=== PATIENT | female | born 1930 | race Caucasian/White ===

== ENCOUNTER → 2017-02-04 | Outpatient (CLI) | payer MEDICARE, BC ==
[2017-02-04 11:32] LABS: Blood Urea Nitrogen 12 mg/dL (7-17); Non-African American GFR(MDRD) >60 (>60 ml/min/1.73 sqM)
== END | disposition home or self-care (01) ==
LOC: LABWHC1 10:29
PROVIDERS: ATTEND Physical Medicine & Rehabilitation
DX: Z01.812 Encounter for preprocedural laboratory examination (principal); N28.9 Disorder of kidney and ureter, unspecified
CPT/HCPCS: 36415; 82565; 84520

== ENCOUNTER 2017-07-24 09:36 | Observation (INO) | payer MEDICARE, BC ==
--- NOTE | 2017-07-24 09:45 | ED ---
General Adult HPI - General Chief complaint: Chest Pain Stated complaint: Chest Pain/Dizzy Time Seen by Provider: 07/24/17 09:41 Source: patient, RN notes reviewed, old records reviewed Mode of arrival: EMS Limitations: no limitations - History of Present Illness Initial comments: This is an 86-year-old female to the ER for evaluation of chest pain today. Patient has history of heart disease history of [place]. Multiple history of heart catheterizations. Patient had chest pain today she has not had any chest pain 8 months patient doesn't nitro one time with no improvement, second nitro did help chest pain and patient is currently chest pain-free. Denies any other significant complaints. No recent fever cough congestion or shortness of breath. - Related Data Home Medications Medication Instructions Recorded Confirmed Areds 2 1 tab PO DAILY 05/29/15 07/24/17 Docusate [Colace] 100 mg PO HS 05/29/15 07/24/17 Ergocalciferol [Vitamin D2 50,000 unit PO SABA 05/29/15 07/24/17 (DRISDOL)] HYDROcodone/APAP 5-325MG [[place] 1 tab PO Q4HR PRN 05/29/15 07/24/17 5-325] Isosorbide Mononitrate ER [Imdur] 30 mg PO BID 05/29/15 07/24/17 Multivitamins, Thera [Multivitamin 1 tab PO DAILY 05/29/15 07/24/17 (formulary)] Naloxegol Oxalate [Movantik] 25 mg PO Q48H PRN 05/29/15 07/24/17 Nitroglycerin Sl Tabs [Nitrostat] 0.4 mg SUBLINGUAL Q5M PRN 05/29/15 07/24/17 Aspirin EC [Ecotrin Low Dose] 81 mg PO DAILY 07/24/17 07/24/17 Budesonide [Pulmicort] 0.5 mg INHALATION RT-BID 07/24/17 07/24/17 Halobetasol Propionate 1 applic TOPICAL BID 07/24/17 07/24/17 Inulin/Chromium Picolinate [Fiber 1 tab PO DAILY 07/24/17 07/24/17 Gummies Chew] Lidocaine 5% Patch [Lidoderm] 1 patch TOPICAL DAILY PRN 07/24/17 07/24/17 Pantoprazole [Protonix] 40 mg PO BID 07/24/17 07/24/17 diphenhydrAMINE [Benadryl] 50 mg PO HS 07/24/17 07/24/17 Allergies Allergy/AdvReac Type Severity Reaction Status Date / Time azithromycin [From Zithromax] Allergy Unknown Verified 07/24/17 10:01 bacitracin Allergy Unknown Verified 07/24/17 10:01 [From Neosporin ([id number])] bacitracin zinc Allergy Unknown Verified 07/24/17 10:01 [From Neosporin ([id number])] ciprofloxacin [From Cipro] Allergy Unknown Verified 07/24/17 10:01 ciprofloxacin HCl Allergy Unknown Verified 07/24/17 10:01 [From Cipro] codeine Allergy Unknown Verified 07/24/17 10:01 fenofibrate Allergy Unknown Verified 07/24/17 10:01 fenofibrate nanocrystallized Allergy Unknown Verified 07/24/17 10:01 [From Tricor] fenofibrate,micronized Allergy Unknown Verified 07/24/17 10:01 [From Tricor] hydromorphone HCl Allergy Unknown Verified 07/24/17 10:01 [From Dilaudid] latex Allergy Unknown Verified 07/24/17 10:01 neomycin sulfate Allergy Unknown Verified 07/24/17 10:01 [From Neosporin ([id number])] Penicillins Allergy Unknown Verified 07/24/17 10:01 pentazocine lactate Allergy Unknown Verified 07/24/17 10:01 [From Talwin] polymyxin B Allergy Unknown Verified 07/24/17 10:01 [From Neosporin ([id number])] shellfish derived Allergy Unknown Verified 07/24/17 10:01 simvastatin Allergy Unknown Verified 07/24/17 10:01 sucralfate Allergy Unknown Verified 07/24/17 10:01 Review of Systems ROS Statement: Those systems with pertinent positive or pertinent negative responses have been documented in the HPI. ROS Other: All systems not noted in ROS Statement are negative. Past Medical History Past Medical History: Coronary Artery Disease (CAD), Cancer, Heart Failure, GERD /Reflux, Myocardial Infarction ([place]), Osteoarthritis (OA) Additional Past Medical History / Comment(s): 15 ADMITTED WITH LT LEG DVT. OTHER PAST MEDICL HX INCLUDES: skin cancer, COLON CANCER,HIATAL HERNIA, INCONT OF URINE,CHRONIC BACK PAIN,SCOLIOSIS,DDD,SHINGLES 1995, [place] 2006 PER OLD HX. Last Myocardial Infarction Date:: 2006 History of Any Multi-Drug Resistant Organisms: None Reported Past Surgical History: Bladder Surgery, Bowel Resection, Section, Cholecystectomy, Heart Catheterization, Hernia Repair, Hysterectomy, Joint Replacement, Orthopedic Surgery Additional Past Surgical History / Comment(s): eye SX FOR CRYSTALS BEHIND EYES, CATARACTS, RAVI CARPAL TUNNEL RELEASE,RECTOCELE REPAIR, RADIOFREQUENCY ABLATION L3-4,L4-5,L5-S1. RT SIDE SACROILIAC JOINT INJECTION UNDER FLUOSCOPY,TRIGGER POINT INJ RT SHOULDER.RAVI BUNIONECTOMY,HMMER TOE SX, RAVI KNEE REPLACMENT,NECK SX ,NERVES BURNED IN BACK,SKINCA REMOVED NOSE /FACE, LT HIP REPLACEMNT-NEEDS ABX FOR LIFE FOR ANY DENTAL/UROLOGICAL PROCEDURES. Additional Past Anesthesia/Blood Transfusion Reaction / Comment(s): BLOOD TRANSFUSION-NO REACTION Past Psychological History: No Psychological Hx Reported Smoking Status: Never smoker Past Alcohol Use History: None Reported Past Drug Use History: None Reported - Past Family History Mother Family Medical History: Cancer Additional Family Medical History / Comment(s): PANCREATITC CANCER Father Family Medical History: Myocardial Infarction ([place]) General Exam Limitations: no limitations General appearance: alert, in no apparent distress Head exam: Present: atraumatic, normocephalic, normal inspection Eye exam: Present: normal appearance, PERRL, EOMI. Absent: scleral icterus, conjunctival injection, periorbital swelling ENT exam: Present: normal exam, mucous membranes moist Neck exam: Present: normal inspection. Absent: tenderness, meningismus, lymphadenopathy Respiratory exam: Present: normal lung sounds bilaterally. Absent: respiratory distress, wheezes, rales, rhonchi, stridor Cardiovascular Exam: Present: regular rate, normal rhythm, normal heart sounds. Absent: systolic murmur, diastolic murmur, rubs, gallop, clicks GI/Abdominal exam: Present: soft, normal bowel sounds. Absent: distended, tenderness, guarding, rebound, rigid Extremities exam: Present: normal inspection, full ROM, normal capillary refill. Absent: tenderness, pedal edema, joint swelling, calf tenderness Back exam: Present: normal inspection Neurological exam: Present: alert, oriented X3, CN II-XII intact Psychiatric exam: Present: normal affect, normal mood Skin exam: Present: warm, dry, intact, normal color. Absent: rash Course Vital Signs 07/24/17 07/24/17 07/24/17 09:39 10:42 12:28 Temperature 97.9 F Pulse Rate 61 66 60 Respiratory 18 16 16 Rate Blood Pressure 182/77 155/77 114/73 O2 Sat by Pulse 95 94 L 93 L Oximetry 07/24/17 07/24/17 07/24/17 12:30 13:30 13:33 Temperature Pulse Rate 64 75 91 Respiratory 16 18 16 Rate Blood Pressure 174/73 172/68 172/68 O2 Sat by Pulse 97 68 L 97 Oximetry 07/24/17 07/24/17 16:13 17:30 Temperature Pulse Rate 69 62 Respiratory 18 Rate Blood Pressure 139/63 139/60 O2 Sat by Pulse 99 100 Oximetry - Reevaluation(s) Reevaluation #1: 07/24/17 10:36 Patient remains without chest pain at this time EKG Findings - EKG Comments: EKG Findings:: EKG shows normal sinus 60, AR 112, QRS 134, QTC 454 Medical Decision Making - Medical Decision Making 86 female DEL history of CAD, patient will be admitted for cardiac observation and evaluation. Serial troponins and anticoagulation - Lab Data Result diagrams: 07/25/17 07:54 07/24/17 11:05 - Radiology Data Radiology results: report reviewed (Chest x-rays negative for acute disease), image reviewed Critical Care Time Critical Care Time: Yes Total Critical Care Time: 31 Disposition Clinical Impression: Chest pain Disposition: ADMITTED IP TO THIS [facility] Condition: Undetermined
[2017-07-24] MEDS ORDERED: ASPIRIN 81 MG PO STA (10:33)
[2017-07-24] MEDS ORDERED: HEPARIN SODIUM,PORCINE 5,000 UNIT/ML 1 ML VIAL IV PRN (10:33)
[2017-07-24] MEDS ORDERED: NITROGLYCERIN SL TABS 0.4 MG TAB SUBLINGUAL PRN ×2 (10:33→16:24)
[2017-07-24] MEDS ORDERED: HEPARIN SODIUM,PORCINE 5,000 UNIT/ML 1 ML VIAL IV ONE (10:33)
[2017-07-24] MEDS ORDERED: HEPARIN SOD,PORK IN 0.45% NACL 25,000 UNIT in 0.45% NACL 1 500ML.BAG IV SCH (10:45)
[2017-07-24 11:30] LABS: Basophils % (A) 1 %; Eosinophils # (A) 0.1 k/uL (0-0.7); Eosinophils % (A) 1 %; HCT 40.1 % (34.0-46.0); HGB 13.5 gm/dL (11.4-16.0); Lymphocytes # (A) 1.9 k/uL (1.0-4.8); Lymphocytes % (A) 32 %; MCH 31.2 pg (25.0-35.0); MCHC 33.8 g/dL (31.0-37.0); MCV 92.4 fL (80.0-100.0); Mean Platelet Volume 7.6; Monocytes # (A) 0.5 k/uL (0-1.0); Monocytes % (A) 9 %; Neutrophils # (A) 3.2 k/uL (1.3-7.7); Neutrophils % (A) 54 %; Platelet Count 249 k/uL (150-450); RBC 4.33 m/uL (3.80-5.40); RDW 12.6 % (11.5-15.5)
[2017-07-24 11:42] LABS: ALT 18 U/L (9-52); AST 18 U/L (14-36); Albumin 3.6 g/dL (3.5-5.0); Alkaline Phosphatase 73 U/L (38-126); Anion Gap 8 mmol/L; Blood Urea Nitrogen 17 mg/dL (7-17); Calcium 9.5 mg/dL (8.4-10.2); Carbon Dioxide 30 mmol/L (22-30); Chloride 102 mmol/L (98-107); Glucose 89 mg/dL (74-99); Lipase 43 U/L (23-300); Magnesium 2.1 mg/dL (1.6-2.3); Sodium 140 mmol/L (137-145); Total Bilirubin 0.4 mg/dL (0.2-1.3); Total Protein 6.3 g/dL (6.3-8.2)
--- NOTE | 2017-07-24 11:42 | XR ---
EXAMINATION TYPE: XR chest 2V DATE OF EXAM: 07/24/2017 COMPARISON: 02/20/2013 INDICATION: Chest pain TECHNIQUE: Frontal and lateral views of the chest are obtained. FINDINGS: The heart size is normal. The pulmonary vasculature is normal. The lungs are clear. There is chronic elevation of the right diaphragm. IMPRESSION: 1. No acute pulmonary process.
[2017-07-24 11:49] LABS: Creatine Kinase 40 U/L (30-135)
[2017-07-24 12:02] LABS: Creatine Kinase MB 0.4 ng/mL (0.0-2.4); Troponin I <0.012 ng/mL (0.000-0.034)
[2017-07-24 12:06] LABS: Partial Thromboplastin Time 20.7 sec (22.0-30.0); Prothrombin Time 9.9 sec (9.0-12.0)
[2017-07-24] MEDS ORDERED: NON-FORMULARY DRUG (Naloxegol Oxalate [Movantik] 25 MG) PO PRN (16:24)
[2017-07-24] MEDS ORDERED: LIDOCAINE 5% PATCH TOPICAL PRN (16:24)
--- NOTE | 2017-07-24 16:55 | HP ---
HISTORY AND PHYSICAL CHIEF COMPLAINT: 86-year-old white female with chest pain and dizziness similar to eight months ago chest pain she had eight months ago when she had a heart attack. HISTORY OF PRESENT ILLNESS: 86-year-old white female came into the hospital due to chest pain. She has a history of heart disease, [place], history of heart catheterization. Chest pain is relieved by nitroglycerin, which made her dizzy. Due to dizziness and chest pain, she came to the hospital. No recent cough, fever, chills, shortness of breath. No fever, cough, congestion, shortness of breath. MEDICATIONS: 1 tab daily, Colace 100 mg daily, vitamin D 25787 units once a week, [place] 5/325 every 4 hours, Imdur 30 mg b.i.d., multivitamin daily, Movantik 25 mg q48 hours, nitroglycerin sublingual, Ecotrin 81 mg daily, Pulmicort 0.5 mg b.i.d., gummies, lidocaine 5% patch daily, Protonix 40 mg b.i.d., Benadryl 60 mg q.h.s. ALLERGIES: ERYTHROMYCIN, AZITHROMYCIN, BACITRACIN, CIPROFLOXACIN, CODEINE, FENOFIBRATE, NEOMYCIN, PENICILLIN, POLYMYXIN, SHELLFISH, SIMVASTATIN, SULCRAFATE. REVIEW OF SYSTEMS: 14-point review of systems negative except for mentioned in HPI. PAST MEDICAL HISTORY: Coronary artery disease, cancer, heart failure, GERD, reflux, myocardial infarction, osteoarthritis, skin cancer, colon cancer, hiatal hernia. Chronic back pain. Scoliosis. Shingles, degenerative disc disease. PAST SURGICAL HISTORY: Bladder surgery, bowel resection, , cholecystectomy, heart catheterization, hernia repair, hysterectomy, joint replacement, orthopedic surgery, cataract surgery, carpal tunnel release, rectocele repair, sacral iliac joint injection, bunionectomy, bilateral knee replacement, left hip replacement. FAMILY HISTORY: Mother cancer, pancreatic cancer. Father, myocardial infarction. PHYSICAL EXAM: Vital signs: Temperature 97.9, pulse 60, respirations 16 to 18, blood pressure 182/77. HEENT: Normocephalic, atraumatic. Looks stated age. Ophthalmological: Pupils equal, round, reactive to light and accommodation. Cardiovascular S1, S2. LUNGS: Transmitted upper sounds. GI soft nontender. Hematologic: Negative Homans. Psych: Fair mood and affect. NEUROLOGIC: Alert and oriented x3. ASSESSMENT: 1. Atypical chest pain. Rule out myocardial infarction. 2. History of coronary artery disease. 3. History of hypertension. 4. Gastroesophageal reflux disease. 5. Dyslipidemia. Continue current treatments. Rule out myocardial infarction. Cardiology is seeing the patient. MMODL / IJN: [id number] /
--- NOTE | 2017-07-24 17:00 | CT ---
EXAMINATION TYPE: CT chest wo con DATE OF EXAM: 07/24/2017 COMPARISON: 05/29/2015 HISTORY: shortness of breath and back pain. CT DLP: 258.4 mGycm. Automated Exposure Control for Dose Reduction was Utilized. TECHNIQUE: CT scan of the thorax is performed without IV contrast. FINDINGS: There is minimal linear density in the right middle lobe. There is no pleural effusion. There is no e vidence of a pulmonary mass. There is moderate size hiatal hernia. There is some atherosclerotic vasc ular calcification. There is no pericardial effusion. There is no mediastinal adenopathy. There is hy pertrophic spurring in the thoracic and lumbar spine. IMPRESSION: Hiatal hernia. Atherosclerotic vascular disease. Mild scarring in the right middle lobe. No significant change compared to old exam. Spondylotic changes in the thoracic spine. No compression fracture seen.
[2017-07-24] MEDS: HYDROcodone/APAP 5-325MG 1 EACH TAB PO PRN ×2 (17:09→20:46)
[2017-07-24] MEDS ORDERED: ERGOCALCIFEROL 50,000 UNIT CAP PO SCH (18:00)
[2017-07-24 18:42] LABS: Creatine Kinase MB 0.4 ng/mL (0.0-2.4)
[2017-07-24 18:46] VITALS: BMI 23.3
[2017-07-24] MEDS: BUDESONIDE 0.5 MG/2 ML NEBU INHALATION SCH (19:05)
[2017-07-24] MEDS: PANTOPRAZOLE 40 MG TABLET PO SCH (19:10)
[2017-07-24] MEDS: DOCUSATE 100 MG CAP PO SCH (20:36)
[2017-07-24] MEDS: CLOBETASOL PROP 0.05% CR 15GM TOPICAL SCH (20:36)
[2017-07-24] MEDS: METOPROLOL TARTRATE 25 MG TAB PO SCH (20:36)
[2017-07-24] MEDS: diphenhydrAMINE 50 MG CAP PO SCH (20:36)
[2017-07-24] MEDS: ISOSORBIDE MONONITRATE ER 30 MG TAB.ER.24H PO SCH (20:36)
[2017-07-25 01:37] LABS: Creatine Kinase 24 U/L (30-135)
[2017-07-25 01:48] LABS: Creatine Kinase MB 0.3 ng/mL (0.0-2.4)
[2017-07-25 01:51] LABS: Troponin I <0.012 ng/mL (0.000-0.034)
[2017-07-25] MEDS ORDERED: ASPIRIN 325 MG TAB PO SCH (09:00)
[2017-07-25 09:41] LABS: Cholesterol 178 mg/dL (<200); HDL Cholesterol 56 mg/dL (40-60); LDL Cholesterol,Calculated 104 mg/dL (0-99); Triglycerides 90 mg/dL (<150)
[2017-07-25 10:09] LABS: Mean Platelet Volume 7.6; Platelet Count 208 k/uL (150-450)
[2017-07-25] MEDS: BUDESONIDE 0.5 MG/2 ML NEBU INHALATION SCH ×2 (10:54→20:38)
[2017-07-25] MEDS ORDERED: AMINOPHYLLINE 500 MG/20 ML VIAL IV PRN (11:28)
[2017-07-25] MEDS ORDERED: REGADENOSON 0.4 MG/5 ML SYRINGE IV ONE (11:28)
[2017-07-25] MEDS: MULTIVITAMINS, THERA 1 EACH TAB PO SCH (11:58)
[2017-07-25] MEDS: CALCIUM POLYCARBOPHIL 625 MG TAB PO SCH (11:58)
[2017-07-25] MEDS: VIT A,C & E-LUTEIN-MINERALS 1 EACH TAB PO SCH (11:58)
[2017-07-25] MEDS: ASPIRIN 81 MG PO SCH (11:58)
[2017-07-25] MEDS: PANTOPRAZOLE 40 MG TABLET PO SCH ×2 (11:58→18:38)
[2017-07-25] MEDS: CLOBETASOL PROP 0.05% CR 15GM TOPICAL SCH ×2 (12:00→21:10)
--- NOTE | 2017-07-25 12:14 | PN ---
PROGRESS NOTE SUBJECTIVE: This 86-year-old, white female, admitted with atypical chest pain. CAT scan of the chest is negative. Cardiac enzymes negative x3. Await Cardiology clearance prior to discharge. She is having a lot of stress and anxiety in her life. Possible GERD and acid reflux for which she will be placed on a stomach pill when she goes home. CARDIOVASCULAR: S1, S2. LUNGS: Clear. GI is tender to palpation. EPIGASTRIC: History of a hiatal hernia. PSYCH: Fair mood and affect. NEUROLOGIC: Alert and orient x3. ASSESSMENT: 1. Atypical chest pain. 2. Possible gastroesophageal reflux disease. 3. Hiatal hernia. 4. Myocardial infarction ruled out. 5. Pulmonary process ruled out. Please see further orders. Placed on a stomach pill. Possible discharge home on omeprazole. MMODL / IJN: [id number] /
--- NOTE | 2017-07-25 12:28 | P.CRDCN ---
History of Present Illness Consult date: 07/25/17 Consult reason: chest pain History of present illness: Mrs. Hammer is a pleasant 86-year-old female past medical history significant for coronary artery disease and gastroesophageal reflux disease. She hasn't seen a interventional radiologist in the last 10ish years. Old records reviewed reveal she had a catheterization in [address] Mcfarland that revealed a chronic total occlusion of the RCA, miod diseae of LAD, 50% stenosis of first OM and 99% circumflex stenosis. At that time she underwent balloon angioplasty of the circumflex. She followed up with a cardiolgist at [facility] a couple times and now just sees a primary care physician. She states she suffers from intermittent episodes of chest pain over the last 8+ months. Yesterday she had an episode of sharp mid-sternal chest pain yesterday morning when she woke up. She took a sublingual nitroglycerin with no relief. Waited 20 minutes and took a second one. The pain started to subside but she became acutely dizzy so decided to call EMS. Dizziness lasted approximately 30-45 minutes. She denies any associated shortness of breath, palpitations, nausea, vomiting or diaphoresis. The pain did not radiate anywhere, remained localized to the anterior mid-sternal area. She has had no reoccurrence of pain since admission and telemetry tracings have been unremarkable. EKG on arrival reveals sinus rhythm with right bundle branch block pattern. No acute ST or T-wave abnormalities. Chest xray is negative for an acute cardiopulmonary process. Laboratory data reviewed, cardiac enzymes negative 3, hemoglobin 13.5, platelets 249, potassium 4.0, creatinine 0.6, magnesium 2.1, LDL 104, HDL 56, triglycerides 90, total cholesterol 178. Current cardiac medications include Imdur 30 mg twice a day and aspirin 81 mg daily. Review of the records reveals last echocardiogram was performed 2008 revealed preserved left ventricular systolic function with ejection fraction 60%. Review of Systems At the time of my exam: CONSTITUTIONAL: Denies fever. Denies chills. EYES: Denies blurred vision. Denies vision changes. Denies eye pain. EARS, NOSE, MOUTH & THROAT: Denies headache. Denies sore throat. Denies ear pain. CARDIOVASCULAR: Denies chest pain. Denies shortness of breath. Denies orthopnea. Denies PND. Denies palpitations. RESPIRATORY: Denies cough. GASTROINTESTINAL: Denies abdominal pain. Denies diarrhea. Denies constipation. Denies nausea. Denies vomiting. MUSCULOSKELETAL: Denies myalgias. INTEGUMENTARY: Denies pruitis. Denies rash. NEUROLOGIC: Denies numbness. Denies tingling. Denies weakness. PSYCHIATRIC: Denies anxiety. Denies depression. ENDOCRINE: Denies fatigue. Denies weight change. Denies polydipsia. Denies polyurina. GENITOURINARY: Denies burning, hematuria or urgency with micturation. HEMATOLOGIC: Denies history of anemia. Denies bleeding. Past Medical History Past Medical History: Coronary Artery Disease (CAD), Cancer, Heart Failure, GERD /Reflux, Myocardial Infarction (MT), Osteoarthritis (OA) Additional Past Medical History / Comment(s): 05-29-15 ADMITTED WITH LT LEG DVT. OTHER PAST MEDICL HX INCLUDES: skin cancer, COLON CANCER,HIATAL HERNIA, INCONT OF URINE,CHRONIC BACK PAIN,SCOLIOSIS,DDD,SHINGLES 1995, MT 2006 PER OLD HX. Last Myocardial Infarction Date:: 2006 History of Any Multi-Drug Resistant Organisms: None Reported Past Surgical History: Bladder Surgery, Bowel Resection, Section, Cholecystectomy, Heart Catheterization, Heart Catheterization With Stent, Hernia Repair, Hysterectomy, Joint Replacement, Orthopedic Surgery Additional Past Surgical History / Comment(s): eye SX FOR CRYSTALS BEHIND EYES, CATARACTS, RAVI CARPAL TUNNEL RELEASE,RECTOCELE REPAIR, RADIOFREQUENCY ABLATION L3-4,L4-5,L5-S1. RT SIDE SACROILIAC JOINT INJECTION UNDER FLUOSCOPY,TRIGGER POINT INJ RT SHOULDER.RAVI BUNIONECTOMY,HMMER TOE SX, RAVI KNEE REPLACMENT,NECK SX ,NERVES BURNED IN BACK,SKINCA REMOVED NOSE /FACE, LT HIP REPLACEMNT-NEEDS ABX FOR LIFE FOR ANY DENTAL/UROLOGICAL PROCEDURES. Past Anesthesia/Blood Transfusion Reactions: No Reported Reaction Additional Past Anesthesia/Blood Transfusion Reaction / Comment(s): BLOOD TRANSFUSION-NO REACTION Date of Last Stent Placement:: 2006 Past Psychological History: No Psychological Hx Reported Smoking Status: Never smoker Past Alcohol Use History: Occasional Past Drug Use History: None Reported - Past Family History Mother Family Medical History: Cancer Additional Family Medical History / Comment(s): PANCREATITC CANCER Father Family Medical History: Myocardial Infarction (MT) Medications and Allergies Home Medications Medication Instructions Recorded Confirmed Type Areds 2 1 tab PO DAILY 05/29/15 07/24/17 History Docusate [Colace] 100 mg PO HS 05/29/15 07/24/17 History Ergocalciferol [Vitamin D2 50,000 unit PO SABA 05/29/15 07/24/17 History (DRISDOL)] HYDROcodone/APAP 5-325MG [[place] 1 tab PO Q4HR PRN 05/29/15 07/24/17 History 5-325] Isosorbide Mononitrate ER [Imdur] 30 mg PO BID 05/29/15 07/24/17 History Multivitamins, Thera [Multivitamin 1 tab PO DAILY 05/29/15 07/24/17 History (formulary)] Naloxegol Oxalate [Movantik] 25 mg PO Q48H PRN 05/29/15 07/24/17 History Nitroglycerin Sl Tabs [Nitrostat] 0.4 mg SUBLINGUAL Q5M PRN 05/29/15 07/24/17 History Aspirin EC [Ecotrin Low Dose] 81 mg PO DAILY 07/24/17 07/24/17 History Budesonide [Pulmicort] 0.5 mg INHALATION RT-BID 07/24/17 07/24/17 History Halobetasol Propionate 1 applic TOPICAL BID 07/24/17 07/24/17 History Inulin/Chromium Picolinate [Fiber 1 tab PO DAILY 07/24/17 07/24/17 History Gummies Chew] Lidocaine 5% Patch [Lidoderm] 1 patch TOPICAL DAILY PRN 07/24/17 07/24/17 History Pantoprazole [Protonix] 40 mg PO BID 07/24/17 07/24/17 History diphenhydrAMINE [Benadryl] 50 mg PO HS 07/24/17 07/24/17 History Allergies Allergy/AdvReac Type Severity Reaction Status Date / Time azithromycin [From Zithromax] Allergy Unknown Verified 07/24/17 10:01 bacitracin Allergy Unknown Verified 07/24/17 10:01 [From Neosporin ([id number])] bacitracin zinc Allergy Unknown Verified 07/24/17 10:01 [From Neosporin ([id number])] ciprofloxacin [From Cipro] Allergy Unknown Verified 07/24/17 10:01 ciprofloxacin HCl Allergy Unknown Verified 07/24/17 10:01 [From Cipro] codeine Allergy Unknown Verified 07/24/17 10:01 fenofibrate Allergy Unknown Verified 07/24/17 10:01 fenofibrate nanocrystallized Allergy Unknown Verified 07/24/17 10:01 [From Tricor] fenofibrate,micronized Allergy Unknown Verified 07/24/17 10:01 [From Tricor] hydromorphone HCl Allergy Unknown Verified 07/24/17 10:01 [From Dilaudid] latex Allergy Unknown Verified 07/24/17 10:01 neomycin sulfate Allergy Unknown Verified 07/24/17 10:01 [From Neosporin ([id number])] Penicillins Allergy Unknown Verified 07/24/17 10:01 pentazocine lactate Allergy Unknown Verified 07/24/17 10:01 [From Talwin] polymyxin B Allergy Unknown Verified 07/24/17 10:01 [From Neosporin ([id number])] shellfish derived Allergy Unknown Verified 07/24/17 10:01 simvastatin Allergy Unknown Verified 07/24/17 10:01 sucralfate Allergy Unknown Verified 07/24/17 10:01 Physical Exam Vitals: Vital Signs Temp Pulse Pulse Pulse Resp BP BP 07/25/17 08:00 97.9 F 59 L 18 114/55 07/25/17 04:00 97.6 F 56 L 15 112/54 07/25/17 00:00 97.8 F 62 15 100/48 07/24/17 20:00 97.1 F L 69 16 113/47 07/24/17 19:12 88 07/24/17 19:05 92 07/24/17 18:27 97.5 F L 96 07/24/17 17:30 62 139/60 07/24/17 16:13 69 18 139/63 07/24/17 13:33 91 16 172/68 07/24/17 13:30 75 18 172/68 07/24/17 12:30 64 16 174/73 07/24/17 12:28 60 16 114/73 07/24/17 10:42 66 16 155/77 07/24/17 09:39 97.9 F 61 18 182/77 Pulse Ox 03/05/18 08:00 96 07/25/17 04:00 97 07/25/17 00:00 95 07/24/17 20:00 100 07/24/17 19:12 07/24/17 19:05 07/24/17 18:27 96 07/24/17 17:30 100 07/24/17 16:13 99 07/24/17 13:33 97 07/24/17 13:30 68 L 07/24/17 12:30 97 07/24/17 12:28 93 L 07/24/17 10:42 94 L 07/24/17 09:39 95 Intake and Output 07/24/17 07/25/17 07/25/17 22:59 06:59 14:59 Intake Total 132.842 127.953 Balance 132.842 127.953 Intake: Intake, IV Titration 132.842 127.953 Amount Heparin Sod,Pork in 0.45% 132.842 127.953 NaCl 25,000 unit In 0.45 % NaCl 1 500ml.bag @ 12 UNITS/KG/HR 15.24 mls/hr IV .Q24H [facility] Rx#: [id number] Other: Voiding Method Bedside Commode Bedside Commode # Voids 1 Weight 63.503 kg Blood pressure 112/54 rate 56 afebrile maintaining oxygen saturations on room air. GENERAL: This is a 86-year-old female in no apparent distress at the time of my examination. HEENT: Head is atraumatic, normocephalic. Pupils are equal, round. Sclerae anicteric. Conjunctivae are clear. Mucous membranes of the mouth are moist. Neck is supple. There is no jugular venous distention. No carotid bruit is heard. LUNGS: Clear to auscultation no wheezes, rales or rhonchi. No chest wall tenderness is noted on palpation or with deep breathing. HEART: Regular rate and rhythm with faint systolic ejection murmur at the base, no rubs or gallops. S1 and S2 heard. ABDOMEN: Soft, nontender. Bowel sounds are heard. No organomegaly noted. EXTREMITIES: No evidence of peripheral edema and no calf tenderness noted. VASCULAR: Radial and dorsalis pedis pulses palpated, no evidence of clubbing. NEUROLOGIC: Patient is awake, alert and oriented x3. Results 07/25/17 07:54 07/24/17 11:05 Cardiac Enzymes 07/24/17 07/24/17 07/24/17 Range/Units 11:05 11:05 17:45 AST 18 (14-36) U/L CK-MB (CK-2) 0.4 0.4 (0.0-2.4) ng/mL Troponin I <0.012 (0.000-0.034) ng/mL 07/25/17 Range/Units 01:00 AST (14-36) U/L CK-MB (CK-2) 0.3 (0.0-2.4) ng/mL Troponin I <0.012 (0.000-0.034) ng/mL Coagulation 07/24/17 07/24/17 07/25/17 Range/Units 11:05 19:28 02:40 PT 9.9 (9.0-12.0) sec APTT 20.7 L 39.7 H 151.6 H* (22.0-30.0) sec CBC 07/24/17 Range/Units 11:05 WBC 6.0 (3.8-10.6) k/uL RBC 4.33 (3.80-5.40) m/uL Hgb 13.5 (11.4-16.0) gm/dL Hct 40.1 (34.0-46.0) % Plt Count 249 (150-450) k/uL Comprehensive Metabolic Panel 07/24/17 Range/Units 11:05 Sodium 140 (137-145) mmol/L Potassium 4.0 (3.5-5.1) mmol/L Chloride 102 (98-107) mmol/L Carbon Dioxide 30 (22-30) mmol/L BUN 17 (7-17) mg/dL Creatinine 0.60 (0.52-1.04) mg/dL Glucose 89 (74-99) mg/dL Calcium 9.5 (8.4-10.2) mg/dL AST 18 (14-36) U/L ALT 18 (9-52) U/L Alkaline Phosphatase 73 (38-126) U/L Total Protein 6.3 (6.3-8.2) g/dL Albumin 3.6 (3.5-5.0) g/dL Current Medications Generic Name Dose Route Start Last Admin Trade Name Freq PRN Reason Stop Dose Admin Hydrocodone Bitart/Acetaminophen 1 each 07/24/17 16:24 07/24/17 20:46 [place] 5-325 PO 1 each Q4HR PRN Administration Moderate Pain Aspirin 81 mg 07/25/17 09:00 Aspirin PO DAILY [facility] Budesonide 0.5 mg 07/24/17 20:00 07/24/17 19:05 Pulmicort INHALATION 0.5 mg RT-BID [facility] Administration Calcium Polycarbophil 625 mg 07/25/17 12:00 Fibercon PO DAILY@1200 [facility] Clobetasol Propionate 1 applic 07/24/17 21:00 07/24/17 20:36 Temovate TOPICAL Not Given BID [facility] Diphenhydramine HCl 50 mg 07/24/17 21:00 07/24/17 20:36 Benadryl PO 50 mg HS [facility] Administration Docusate Sodium 100 mg 07/24/17 21:00 07/24/17 20:36 Colace PO 100 mg HS [facility] Administration Ergocalciferol 50,000 unit 07/24/17 18:00 07/24/17 19:10 Vitamin D2 PO 50,000 unit SABA [facility] Administration Heparin Sodium (Porcine) 0 unit 07/24/17 10:33 07/24/17 20:37 Heparin IV 3,150 unit Q6HR PRN Administration Low PTT Protocol Heparin Sodium/Sodium Chloride 500 mls @ 15.24 mls/hr 07/24/17 10:45 04:26 25,000 unit/ Sodium Chloride IV 12 units/kg/hr .Q24H [facility] 15.24 mls/hr Protocol Titration 12 UNITS/KG/HR Isosorbide Mononitrate 30 mg 07/24/17 21:00 07/24/17 20:36 Imdur PO 30 mg BID [facility] Administration Lidocaine 1 patch 07/24/17 16:24 07/24/17 21:31 Lidoderm TOPICAL 1 patch DAILY PRN Administration Pain Metoprolol Tartrate 25 mg 07/24/17 21:00 07/24/17 20:36 Lopressor PO 25 mg BID [facility] Administration Multivitamins 1 each 07/25/17 12:00 Theragran PO 1200 [facility] Multivitamins/Minerals 1 each 07/25/17 12:00 Ivite PO DAILY@1200 [facility] Nitroglycerin 0.4 mg 07/24/17 16:24 Nitrostat SUBLINGUAL Q5M PRN Chest Pain Non-Formulary Medication 25 mg 07/24/17 16:24 Naloxegol Oxalate [Movantik] PO Q48H PRN Constipation Pantoprazole Sodium 40 mg 07/24/17 17:30 07/24/17 19:10 Protonix PO 40 mg AC-BID [facility] Administration Intake and Output 07/24/17 07/25/17 07/25/17 22:59 06:59 14:59 Intake Total 132.842 127.953 Balance 132.842 127.953 Intake: Intake, IV Titration 132.842 127.953 Amount Heparin Sod,Pork in 0.45% 132.842 127.953 NaCl 25,000 unit In 0.45 % NaCl 1 500ml.bag @ 12 UNITS/KG/HR 15.24 mls/hr IV .Q24H [facility] Rx#: [id number] Other: Voiding Method Bedside Commode Bedside Commode # Voids 1 Weight 63.503 kg 07/24/17 11:05 07/24/17 11:05 Assessment and Plan Assessment: ASSESSMENT 1. Chest pain, atypical. An acute coronary event has been ruled out. 2. Known history of coronary artery disease, on imdur and aspirin 3. Dyslipidemia 4. Gastroesophagel reflux disease 5. Dizziness preceding chest pain of unknown etiology. PLAN Obtain 2D echocardiogram and doppler study to assess cardiac structure and function. Heparin infusion can be discontinued. Perform Lexiscan stress test to assess for reversible cardiac ischemia. Check bilateral carotid duplex to assess for stenosis causing dizziness. Obtain orthostatic vital signs. Further recommendations to follow. Nurse Practitioner note has been reviewed, I agree with a documented findings and plan of care. Patient was seen and examined.
[2017-07-25] MEDS ORDERED: AMINOPHYLLINE 250 MG/10 ML VIAL IV ONE (13:20)
--- NOTE | 2017-07-25 13:54 | P.STRESS ---
- Stress Test Note Stress Test Results/Findings: Exam Performed: NM stress lexiscan cardiolite Exam Date: 07/25/17 Reason for Exam: chest pain Height: 5 ft 5 in Weight: 63.503 kg Protocol: miah Stage: na Duration of Exercise: na Resting Heart Rate: 64 Resting Blood Pressure: 117/77 Maximum Achieved Heart Rate: 82 Maximum Achieved Blood Pressure: 133/74 85% PMHR: 113 100% PMHR: 133 METS: na Technologist Comment: Stress Test Results/Findings: 86-year-old female with history of ischemic heart disease who was admitted to the hospital with chest pains. EKGs and cardiac enzymes are negative. Her baseline EKG showed sinus rhythm with KS interval and QRS duration. Blood pressure at rest is 117/77, pulse rate of 64. A standard dose of Lexiscan was infused. EKGs did not reveal any changes to suggest ischemia. Patient developed headache and was given IV Aminophyllin with relief of symptoms. Final impression: #1. Negative Lexiscan stress test #2. Report on the nuclear images to be given by the radiologist
[2017-07-25] MEDS: HYDROcodone/APAP 5-325MG 1 EACH TAB PO PRN ×2 (14:21→21:12)
[2017-07-25] MEDS: ISOSORBIDE MONONITRATE ER 30 MG TAB.ER.24H PO SCH ×2 (14:35→21:09)
[2017-07-25] MEDS: METOPROLOL TARTRATE 25 MG TAB PO SCH (14:35)
--- NOTE | 2017-07-25 14:48 | US ---
EXAMINATION TYPE: US carotid duplex BILAT DATE OF EXAM: 07/25/2017 COMPARISON: NONE CLINICAL HISTORY: syncope. EXAM MEASUREMENTS: RIGHT: Peak Systolic Velocity (PSV) cm/sec ----- Right CCA: 49.6 ----- Right ICA: 29.4 ----- Right ECA: 53.0 ICA/CCA ratio: 0.8 RIGHT: End Diastole cm/sec ----- Right CCA: 12.0 ----- Right ICA: 10.4 ----- Right ECA: 7.7 LEFT: Peak Systolic Velocity (PSV) cm/sec ----- Left CCA: 43.1 ----- Left ICA: 52.2 ----- Left ECA: 53.5 ICA/CCA ratio: 1.2 LEFT: End Diastole cm/sec ----- Left CCA: 11.1 ----- Left ICA: 17.3 ----- Left ECA: 5.1 VERTEBRALS (direction of flow): Right Vertebral: Antegrade Left Vertebral: Antegrade Rhythm: Normal Grayscale images show mild eccentric plaque at bilateral carotid bulbs. Velocity measurements and rat ios in visualized portion of both internal carotid arteries is within normal limits. IMPRESSION: No hemodynamically significant stenosis seen in either internal carotid artery.
--- NOTE | 2017-07-25 16:25 | NM ---
EXAMINATION TYPE: NM stress lexiscan cardiolite DATE OF EXAM: 07/25/2017 COMPARISON: NONE HISTORY: Chest pain TECHNIQUE: After the intravenous administration of 8.04 mCi Tc 99m Sestamibi - Cardiolite resting SP ECT images acquired 45 minutes post injection. The patient received 0.4mg Lexiscan, 25.5 mCi Tc 99m Sestamibi - Stress images obtained 120 minutes p ost injection FINDINGS: Review of stress and rest SPECT images demonstrates a 4 segment moderate periapical stress-induced re versible perfusion abnormality. This corresponds with an abnormal TID of 1.29 and visual enlargement of the left ventricle on stress images. Gated analysis shows apical hypokinesis. The perfusion abnorm alities on rest images do not persist on stress images in the anterior septal wall and inferior later al wall and are related artifact. There is estimated left ventricular ejection fraction of 83 %. IMPRESSION: 1. Reversible periapical defect/ischemia and elevated TID suspicious for balanced 3 vessel ischemia o r less likely cardiomyopathy. 2. Estimated left ventricular ejection fraction of 83%.
--- NOTE | 2017-07-25 19:01 | ECHOF ---
Referral Reason:chest pain MEASUREMENTS -------- HEIGHT: 165.1 cm WEIGHT: 63.5 kg BP: 114/55 IVSd: 1.1 cm (0.6 - 1.1) LVIDd: 4.0 cm (3.9 - 5.3) LVPWd: 0.9 cm (0.6 - 1.1) IVSs: 1.2 cm LVIDs: 3.5 cm LVPWs: 1.1 cm LA Diam: 3.4 cm (2.7 - 3.8) LAESV Index (A-L): 30.46 ml/m Ao Diam: 2.7 cm (2.0 - 3.7) AV Cusp: 1.8 cm (1.5 - 2.6) LA Diam: 4.2 cm (2.7 - 3.8) MV EXCURSION: 18.742 mm (> 18.000) MV EF SLOPE: 100 mm/s (70 - 150) EPSS: 0.7 cm MV E Sony: 0.47 m/s MV DecT: 352 ms MV A Sony: 0.76 m/s MV E/A Ratio: 0.61 RAP: 5.00 mmHg RVSP: 29.13 mmHg FINDINGS -------- Sinus rhythm. This was a technically adequate study. The left ventricular size is normal. Left ventricular wall thickness is normal. Overall left vent ricular systolic function is normal with, an EF between 55 - 60 %. The right ventricle is normal in size. LA is midly dilated 29-33ml/m2. The right atrial size is normal. There is mild aortic valve sclerosis. There is mild aortic regurgitation. Mild mitral annular calcification present. Mild mitral regurgitation is present. Mild tricuspid regurgitation present. There is no evidence of pulmonary hypertension. The right v entricular systolic pressure, as measured by Doppler, is 29.13mmHg. Trace/mild (physiologic) pulmonic regurgitation. The aortic root size is normal. There is no pericardial effusion. CONCLUSIONS -------- 1. The left ventricular size is normal. 2. Left ventricular wall thickness is normal. 3. Overall left ventricular systolic function is normal with, an EF between 55 - 60 %. 4. LA is midly dilated 29-33ml/m2. 5. There is mild aortic valve sclerosis. 6. There is mild aortic regurgitation. 7. Mild mitral annular calcification present. 8. Mild mitral regurgitation is present. 9. Mild tricuspid regurgitation present. 10. There is no evidence of pulmonary hypertension. 11. The right ventricular systolic pressure, as measured by Doppler, is 29.13mmHg. 12. Trace/mild (physiologic) pulmonic regurgitation. 13. The aortic root size is normal. 14. There is no pericardial effusion. IMMUNOLOGY SPECIALIST: Jaci Nam RDCS
[2017-07-25] MEDS: diphenhydrAMINE 50 MG CAP PO SCH (21:09)
[2017-07-25] MEDS: DOCUSATE 100 MG CAP PO SCH (21:09)
[2017-07-26 07:36] VITALS: RESP 18
[2017-07-26] MEDS: BUDESONIDE 0.5 MG/2 ML NEBU INHALATION SCH (08:16)
[2017-07-26] MEDS ORDERED: METOPROLOL TARTRATE 12.5 MG TAB PO SCH (09:30)
--- NOTE | 2017-07-26 10:19 | EST ---
- Stress Test Note Stress Test Results/Findings: Exam Performed: NM stress lexiscan cardiolite Exam Date: 07/25/17 Reason for Exam: chest pain Height: 5 ft 5 in Weight: 63.503 kg Protocol: miah Stage: na Duration of Exercise: na Resting Heart Rate: 64 Resting Blood Pressure: 117/77 Maximum Achieved Heart Rate: 82 Maximum Achieved Blood Pressure: 133/74 85% PMHR: 113 100% PMHR: 133 METS: na Technologist Comment: Stress Test Results/Findings: 86-year-old female with history of ischemic heart disease who was admitted to the hospital with chest pains. EKGs and cardiac enzymes are negative. Her baseline EKG showed sinus rhythm with normal [place] interval and QRS duration. Blood pressure at rest is 117/77, pulse rate of 64. A standard dose of Lexiscan was infused. EKGs did not reveal any changes to suggest ischemia. Patient developed headache and was given IV Aminophyllin with relief of symptoms. Final impression: #1. Negative Lexiscan stress test #2. Report on the nuclear images to be given by the radiologist RAMON
[2017-07-26] MEDS: CLOBETASOL PROP 0.05% CR 15GM TOPICAL SCH (10:37)
[2017-07-26] MEDS: PANTOPRAZOLE 40 MG TABLET PO SCH (10:37)
[2017-07-26] MEDS: ASPIRIN 81 MG PO SCH (10:37)
[2017-07-26] MEDS: ISOSORBIDE MONONITRATE ER 30 MG TAB.ER.24H PO SCH (10:37)
[2017-07-26 11:35] VITALS: BP 117/78; PULSE 79; TEMP 97.7
--- NOTE | 2017-07-26 11:58 | P.PN ---
Subjective Progress Note Date: 07/26/17 Lexiscan stress test indicates possibility of periapical defect/ischemia and elevated TID suspicious of balanced 3-vessel ischemia. The results were discussed with her and lengthy discussion was had regarding possible cardiac catheterization versus medical therapy. Questions were answered appropriately. She denies having any further episodes of chest pain. Also denies shortness of breath, dizziness, palpitations, nausea, vomiting or diaphoresis. Echocardiogram performed reveals preserved LV function with EF 55-60%, mild AV sclerosis, mild AR, mild MR and mild TR. Carotid duplex performed revealed no evidence of hemodynamically significant stenosis in either carotid artery. Objective - Vital Signs Vital signs: Vital Signs Temp 97.5 F L 07/26/17 07:35 Pulse 68 07/26/17 08:22 Resp 18 07/26/17 07:35 BP 113/59 07/26/17 07:35 Pulse Ox 96 07/26/17 07:35 Intake & Output 07/25/17 07/26/17 07/26/17 18:59 06:59 18:59 Intake Total 713 Balance 713 Weight 63.503 kg Intake: Oral 713 Other: Voiding Method Toilet Toilet Diaper # Voids 1 3 1 - Exam Blood pressure 113/59 heart rate 68 afebrile maintaining oxygen saturation on room air GENERAL: Well-appearing, well-nourished and in no acute distress. NECK: Supple without JVD or thyromegaly. LUNGS: Breath sounds clear to auscultation bilaterally. Respiration equal and unlabored. No wheezes, rales or rhonchi. HEART: Regular rate and rhythm with systolic ejection murmur, no rubs or gallops. S1 and S2 heard. EXTREMITIES: Normal range of motion, no edema. No clubbing or cyanosis. Peripheral pulses intact and strong. - Labs CBC & Chem 7: 07/25/17 07:54 07/24/17 11:05 Assessment and Plan Assessment: ASSESSMENT 1. Chest pain, atypical. An acute coronary event has been ruled out. 2. Known history of coronary artery disease, on imdur and aspirin 3. Dyslipidemia 4. Gastroesophagel reflux disease 5. Dizziness preceding chest pain of unknown etiology. PLAN The patient has opted for maximum medical therapy. She does not want to have a catheterization. Risks vs benefits explained to her and she is confident medical therapy is the route she would like to go. Add a small dose of beta coy to daily regimen. Continue with aspirin and imdur as was previously ordered. Follow-up in the office with Dr. Guerrero in 2-3 weeks. Nurse Practitioner note has been reviewed, I agree with a documented findings and plan of care. Patient was seen and examined.
[2017-07-26] MEDS: MULTIVITAMINS, THERA 1 EACH TAB PO SCH (13:25)
[2017-07-26] MEDS: VIT A,C & E-LUTEIN-MINERALS 1 EACH TAB PO SCH (13:25)
[2017-07-26] MEDS: CALCIUM POLYCARBOPHIL 625 MG TAB PO SCH (13:25)
== END 2017-07-26 15:55 | disposition home or self-care (01) ==
LOC: EC 09:36 → 3OBS 10:33 → 3SUR 13:25 → 3OBS 07-25 07:59
PROVIDERS: ADMIT Family Medicine; ATTEND Family Medicine
DX: R07.89 Other chest pain (principal); R42 Dizziness and giddiness; K21.9 Gastro-esophageal reflux disease without esophagitis; I25.10 Atherosclerotic heart disease of native coronary artery without angina pectoris; I50.9 Heart failure, unspecified; M19.90 Unspecified osteoarthritis, unspecified site; E78.5 Hyperlipidemia, unspecified; F41.9 Anxiety disorder, unspecified; F43.9 Reaction to severe stress, unspecified; M54.9 Dorsalgia, unspecified; G89.29 Other chronic pain; K44.9 Diaphragmatic hernia without obstruction or gangrene; I25.2 Old myocardial infarction; M41.9 Scoliosis, unspecified; Z79.82 Long term (current) use of aspirin; Z79.891 Long term (current) use of opiate analgesic; Z79.51 Long term (current) use of inhaled steroids; Z79.899 Other long term (current) drug therapy; Z88.5 Allergy status to narcotic agent; Z88.0 Allergy status to penicillin; Z88.8 Allergy status to other drugs, medicaments and biological substances; Z91.013 Allergy to seafood; Z88.1 Allergy status to other antibiotic agents; Z91.040 Latex allergy status; Z96.653 Presence of artificial knee joint, bilateral; Z96.642 Presence of left artificial hip joint; Z86.718 Personal history of other venous thrombosis and embolism; Z85.828 Personal history of other malignant neoplasm of skin; Z85.038 Personal history of other malignant neoplasm of large intestine; Z80.0 Family history of malignant neoplasm of digestive organs; Z82.49 Family history of ischemic heart disease and other diseases of the circulatory system
CPT/HCPCS: 99291 ×2; 96365 ×2; 96366 ×9; 96376 ×3; 36415; 94640 ×3; 93005; 93017; 93306; 83880; 80061; 80053; 82550 ×2; 82553 ×2; 83690; 83735; 84484 ×2; 85025; 85049; 85610; 85730 ×2; 71046; 93880; 71250; 78452; G0378 ×4; A9500; J1644 ×2; J2785; J0280

== ENCOUNTER 2017-08-22 10:56 | Day surgery (SDC) | payer MEDICARE, BC ==
[2017-08-16 13:16] VITALS: BMI 29.0
[~2017-08-22 10:56] MED LIST: ALPRAZolam 0.25 MG TAB PO PRN; ASPIRIN 325 MG TAB PO ONE; SODIUM CHLORIDE 0.9% 1,000 ML in EMPTY BAG 1 BAG IV ONE
[2017-08-22] MEDS ORDERED: LIDOCAINE 2% INJ 20 MG/ML (20 ML MDV) ONE (11:27)
[2017-08-22] MEDS ORDERED: MIDAZOLAM 2 MG/2 ML VIAL ONE (11:38)
[2017-08-22] MEDS ORDERED: fentaNYL (PF) 50 MCG/ML 2 ML AMP IV ONE (11:55)
[2017-08-22] MEDS ORDERED: MIDAZOLAM 2 MG/2 ML VIAL IV ONE (11:55)
[2017-08-22] MEDS ORDERED: LIDOCAINE 2% INJ 20 MG/ML SQ ONE (11:56)
[2017-08-22] MEDS ORDERED: fentaNYL (PF) 50 MCG/ML 2 ML AMP ONE (11:57)
[2017-08-22] MEDS ORDERED: IOPAMIDOL-370 125ML BTL INJ ONE (12:07)
[2017-08-22] MEDS ORDERED: RX INFO: IV CONTRAST WAS GIVEN 1 EACH MISC MISCELLANE PRN (12:21)
[2017-08-22] MEDS ORDERED: SODIUM CHLORIDE 0.9% 1,000 ML IV SCH (12:30)
--- NOTE | 2017-08-22 12:30 | P.PCN ---
Date of Procedure: 08/22/17 Preoperative Diagnosis: Unstable angina and positive stress test Postoperative Diagnosis: Critical 2 vessel disease Procedure(s) Performed: Left heart catheterization without left ventriculography Description of Procedure: HISTORY: This is a 87-year-old female with history of ischemic heart disease with a previous angioplasty of the circumflex coronary artery who was recently admitted to the hospital with chest pain and borderline troponin elevation. Patient had a nuclear stress test that showed reversible ischemia involving the apical area. Patient was advised maximum medical therapy. However, patient came to the office with recurrent chest pain and wanted to proceed with cardiac catheterization. Patient and family were explained the risks and benefits of the procedure. CONSENT:I have discussed the risks, benefits and alternative therapies for the above-mentioned procedure and for both sedation/analgesia as well as necessary blood product administration, if indicated, as they pertain to this patient. The patient has indicated understanding and acceptance of the risks and procedures discussed. PROCEDURE: Patient was brought to the lab in a fasting state. Patient was given conscious IV sedation. The right groin is infiltrated with lidocaine and right femoral artery was entered using Seldinger technique. A 6-Turkish catheter was left in place and selective coronary arteriography was performed. Patient tolerated the procedure well. Femoral angiogram was performed and Angio-Seal was applied for hemostasis. No immediate complications were noted and patient was transferred to [facility] in a stable condition Conscious Sedation: Versed 0.5 mg Fentanyl 25 g Duration 16 minutes HEMODYNAMICS:. The aortic pressure is about 130/70. Left ventricle end- diastolic pressure is about 4-5. There was no gradient across the aortic valve SELECTIVE CORONARY ARTERIOGRAPHY: LEFT MAIN: This is normal in length and patent THE LEFT ANTERIOR DESCENDING CORONARY ARTERY:. This is a good caliber vessel with moderate disease in the midportion with the area of about 40-50% stenosis. Compared to the last study. There appears to be slight progression of the disease in this area THE LEFT CIRCUMFLEX AND IS CORONARY ARTERY:. This is a good caliber vessel giving rise to good-sized OM branch. The vessel is totally occluded after the OM branch. The distal circumflex is filled by homo lateral collaterals. THE RIGHT CORONARY ARTERY: This is small and nondominant with a significant ostial stenosis and total occlusion in the proximal portion. There are collaterals from the left coronary system filling the distal RCA. LEFT VENTRICULOGRAPHY: Performed FINAL IMPRESSION:. Significant coronary artery disease with a total occlusion of the RCA and also total occlusion of the circumflex in the midportion at the site of previous angioplasty. The left anterior descending coronary artery is intermediate disease with 40-50% stenosis in the midportion. PLAN: The films were reviewed with pediatric physiatrist, Dr. Medellin. It was felt that the circumflex lesion is not amenable for percutaneous intervention. Patient is advised maximum medical therapy PROGNOSIS:. Guarded
[2017-08-22 13:21] VITALS: RESP 16
[2017-08-22 20:04] VITALS: BP 148/68; PULSE 81; TEMP 97.3
== END 2017-08-22 21:56 | disposition home or self-care (01) ==
LOC: CATHCVL 10:56 → 6SEL 13:31 → CATHCVL 21:56
PROVIDERS: ATTEND Internal Medicine Cardiovascular Disease
DX: I25.110 Atherosclerotic heart disease of native coronary artery with unstable angina pectoris (principal); I25.82 Chronic total occlusion of coronary artery; I73.9 Peripheral vascular disease, unspecified; Z86.718 Personal history of other venous thrombosis and embolism; Z82.49 Family history of ischemic heart disease and other diseases of the circulatory system; Z79.82 Long term (current) use of aspirin; Z79.51 Long term (current) use of inhaled steroids; Z79.899 Other long term (current) drug therapy; Z88.5 Allergy status to narcotic agent; Z88.0 Allergy status to penicillin; Z88.8 Allergy status to other drugs, medicaments and biological substances; Z88.1 Allergy status to other antibiotic agents; Z91.040 Latex allergy status
CPT/HCPCS: 93458; C1894; C1769; J2001; J2250; J3010; Q9967

== ENCOUNTER → 2017-10-11 | Outpatient (CLI) | payer MEDICARE, BC ==
[2017-10-11 13:04] LABS: Blood Urea Nitrogen 18 mg/dL (7-17)
--- NOTE | 2017-10-11 16:00 | CT ---
EXAMINATION TYPE: CT ChestAbdPelvis w con DATE OF EXAM: 10/11/2017 COMPARISON: 07/24/2017 and 05/29/2015 HISTORY: 87-year-old female Colon cancer follow up. TECHNIQUE: Contiguous axial scanning of the chest, abdomen, and pelvis performed with IV Contrast, pa tient injected with 100 mL of Isovue M300. Delayed images through the kidneys were obtained. Coronal/ sagittal reconstructions performed. CT DLP: 1851 mGycm Automated exposure control for dose reduction was used. FINDINGS: Chest: Heart normal size without pericardial effusion. Coronary vessel calcifications are present in remarka ble for coronary artery disease. Mild atherosclerotic arch calcifications with conventional arch vessel branching anatomy. Aorta trevor l caliber. No thoracic lymphadenopathy Evaluation of the lungs shows some stable scarring right middle lobe. No consolidation or pleural eff usion. ABDOMEN: Redemonstrated moderate to large hiatal hernia. No focal liver lesion. Some surgical material along the right upper quadrant. Portal venous system is patent. No biliary ductal dilatation. Adrenal glands, and spleen appear within normal limits. Subcentimeter hypodensities in both kidneys t oo small for accurate CT characterization, likely cysts. There is a new heterogeneously enhancing mass centered in the pancreatic body measuring 3.5 x 2.9 cm. There is proximal pancreatic atrophy and main duct dilatation. The splenic vein is located posterior to the mass with preserved fat plane. The proximal portion of the splenic artery abuts the mass kelby g the left posterior margin. Small fatty epigastric ventral abdominal wall hernia measuring 1.8 cm wide. Prior mesh repair periumb ilical region. No mesenteric or retroperitoneal lymphadenopathy seen. Moderate atherosclerotic calcifications throughout the abdominal aorta and iliac arteries. Redundant sigmoid colon. No pericolonic inflammatory change with oral contrast progressing to the rec zeferino. Some bowel resection and anastomotic changes are noted near the right-sided ileocolonic anastomo sis noted. Pelvis: Extensive artifacts from the patient's left hip replacement limits visualization of the pelvis. There are patulous and coronal canals. Uterus surgically absent. Multiple pelvic phleboliths. No abnormal fluid collection seen in the pelvis. Both ovaries are visualized. Bones: Degenerative changes right hip. Left hip total arthroplasty. Advanced degenerative changes throughout the lumbar spine with a degenerated levoconvex curvature. Grade 2 anterolisthesis L4-L5 accentuated kyphosis at the thoracolumbar junction. No osseous destructive process seen. IMPRESSION: 1. FINDINGS CONCERNING FOR A NEW PANCREATIC CARCINOMA MEASURING 3.5 CM LOCATED IN THE PANCREATIC BODY . NO VASCULAR ENCASEMENT IDENTIFIED. 2. PRIOR BOWEL SURGERY ALONG THE RIGHT SIDE OF THE COLON. NO EVIDENCE FOR METASTATIC DISEASE. 3. REDEMONSTRATED MODERATE TO LARGE HIATAL HERNIA AND MILD SCATTERED COLONIC DIVERTICULOSIS.
== END | disposition home or self-care (01) ==
LOC: RADCTMAIN 12:07
PROVIDERS: ATTEND Internal Medicine Medical Oncology
DX: C18.0 Malignant neoplasm of cecum (principal); K57.30 Diverticulosis of large intestine without perforation or abscess without bleeding; K44.9 Diaphragmatic hernia without obstruction or gangrene
CPT/HCPCS: 82565; 84520; 71260; 74177; 36415; Q9967

== ENCOUNTER 2018-01-07 05:56 | Inpatient (IN) | payer MEDICARE, BC ==
[2018-01-07 06:30] LABS: Basophils % (A) 1 %; Eosinophils # (A) 0.2 k/uL (0-0.7); Eosinophils % (A) 4 %; HCT 39.2 % (34.0-46.0); HGB 13.1 gm/dL (11.4-16.0); Lymphocytes # (A) 2.3 k/uL (1.0-4.8); Lymphocytes % (A) 44 %; MCH 31.3 pg (25.0-35.0); MCHC 33.5 g/dL (31.0-37.0); MCV 93.4 fL (80.0-100.0); Mean Platelet Volume 6.8; Monocytes # (A) 0.5 k/uL (0-1.0); Monocytes % (A) 9 %; Neutrophils # (A) 1.9 k/uL (1.3-7.7); Neutrophils % (A) 38 %; Platelet Count 224 k/uL (150-450); RDW 12.9 % (11.5-15.5); WBC 5.1 k/uL (3.8-10.6)
[2018-01-07 06:41] LABS: ALT 24 U/L (9-52); AST 24 U/L (14-36); Albumin 3.5 g/dL (3.5-5.0); Alkaline Phosphatase 67 U/L (38-126); Anion Gap 6 mmol/L; Blood Urea Nitrogen 14 mg/dL (7-17); Calcium 9.4 mg/dL (8.4-10.2); Carbon Dioxide 26 mmol/L (22-30); Chloride 103 mmol/L (98-107); Glucose 90 mg/dL (74-99); Potassium 4.1 mmol/L (3.5-5.1); Sodium 135 mmol/L (137-145); Total Bilirubin 0.6 mg/dL (0.2-1.3); Total Protein 6.3 g/dL (6.3-8.2)
[2018-01-07] MEDS ORDERED: MORPHINE SULFATE 4 MG/ML SYRINGE IV STA (06:47)
--- NOTE | 2018-01-07 06:54 | ED ---
Fall HPI - General Source: EMS Mode of arrival: EMS - History of Present Illness MD Complaint: fall -: minutes(s) Fall From: standing Fall Witnessed: no Place Fall Occurred: home Loss of Consciousness: none Prolonged Down Time?: no Location: other (Right hip) Location - Extremities: Right: Shoulder Severity: moderate Quality: sharp Context: tripped/slipped Associated Symptoms: denies <Noble Finney - Last Filed: 01/07/18 08:49> <Michele Quezada - Last Filed: 01/07/18 09:04> - General Chief Complaint: Fall Stated Complaint: Fall Time Seen by Provider: 01/07/18 05:58 - History of Present Illness Initial Comments: This patient is an 87-year-old woman who states that she had gotten up this morning to use the bathroom and in the act of walking around the side of her bed she states she tripped and fell. She landed on her right side and as result of falls having pain at the right hip and the right shoulder. She states she could not bear weight. (Noble Finney) - Related Data Home Medications Medication Instructions Recorded Confirmed Docusate [Colace] 100 mg PO HS 05/29/15 08/22/17 Ergocalciferol [Vitamin D2 50,000 unit PO SABA 05/29/15 08/22/17 (DRISDOL)] HYDROcodone/APAP 5-325MG [Brilliant 1 tab PO Q4HR PRN 05/29/15 08/22/17 5-325] Isosorbide Mononitrate ER [Imdur] 30 mg PO BID 05/29/15 08/22/17 Naloxegol Oxalate [Movantik] 25 mg PO Q48H PRN 05/29/15 08/22/17 Aspirin EC [Ecotrin Low Dose] 81 mg PO DAILY 07/24/17 08/22/17 Halobetasol Propionate 1 applic TOPICAL BID PRN 07/24/17 08/22/17 Lidocaine 5% Patch [Lidoderm] 1 patch TOPICAL DAILY PRN 07/24/17 08/22/17 Pantoprazole [Protonix] 40 mg PO BID 07/24/17 08/22/17 diphenhydrAMINE [Benadryl] 50 mg PO HS PRN 07/24/17 08/22/17 Metoprolol Tartrate 12.5 mg PO QAM 08/16/17 08/22/17 Nystatin (Dose Unknown) 1 applicate TOPICAL DIRECTED PRN 08/16/17 08/22/17 Vit C/E/Zn/Coppr/Lutein/Zeaxan 1 each PO DAILY 08/16/17 08/22/17 [Preservision Areds 2 Softgel] Previous Rx's Medication Instructions Recorded Nitroglycerin Sl Tabs [Nitrostat] 0.4 mg SUBLINGUAL Q5M PRN #1 bottle 07/26/17 Allergies Allergy/AdvReac Type Severity Reaction Status Date / Time azithromycin [From Zithromax] Allergy Unknown Verified 01/07/18 06:02 bacitracin Allergy Unknown Verified 01/07/18 06:02 [From Neosporin ([id number])] bacitracin zinc Allergy Unknown Verified 01/07/18 06:02 [From Neosporin ([id number])] ciprofloxacin [From Cipro] Allergy Unknown Verified 01/07/18 06:02 ciprofloxacin HCl Allergy Unknown Verified 01/07/18 06:02 [From Cipro] codeine Allergy Unknown Verified 01/07/18 06:02 fenofibrate Allergy Unknown Verified 01/07/18 06:02 fenofibrate nanocrystallized Allergy Unknown Verified 01/07/18 06:02 [From Tricor] fenofibrate,micronized Allergy Unknown Verified 01/07/18 06:02 [From Tricor] hydromorphone HCl Allergy Unknown Verified 01/07/18 06:02 [From Dilaudid] latex Allergy swelling Verified 01/07/18 06:02 of lips and mouth neomycin sulfate Allergy Unknown Verified 01/07/18 06:02 [From Neosporin ([id number])] Penicillins Allergy Unknown Verified 01/07/18 06:02 pentazocine lactate Allergy Unknown Verified 01/07/18 06:02 [From Talwin] polymyxin B Allergy Unknown Verified 01/07/18 06:02 [From Neosporin ([id number])] shellfish derived Allergy Unknown Verified 01/07/18 06:02 simvastatin Allergy Unknown Verified 01/07/18 06:02 sucralfate Allergy Unknown Verified 01/07/18 06:02 Review of Systems ROS Other: All systems not noted in ROS Statement are negative. Constitutional: Denies: weakness Respiratory: Denies: cough, dyspnea Cardiovascular: Denies: chest pain, palpitations, syncope Gastrointestinal: Denies: abdominal pain, vomiting, diarrhea Genitourinary: Denies: dysuria Musculoskeletal: Reports: back pain (Chronic lumbar pain) Skin: Denies: rash Neurological: Denies: headache, weakness, numbness <RegNoble - Last Filed: 01/07/18 08:49> ROS Other: All systems not noted in ROS Statement are negative. <Michele Quezada - Last Filed: 01/07/18 09:04> ROS Statement: Those systems with pertinent positive or pertinent negative responses have been documented in the HPI. Past Medical History Past Medical History: Cancer, Deep Vein Thrombosis (DVT), GERD/Reflux, Myocardial Infarction ([place]), Osteoarthritis (OA) Additional Past Medical History / Comment(s): see Dr Guerrero H&P, gets SOB, DVT left leg 2015, hiatal hernia, hx colon cancer, hx skin cancer, degeneration of spine, Last Myocardial Infarction Date:: 2008 History of Any Multi-Drug Resistant Organisms: None Reported Past Surgical History: Bladder Surgery, Bowel Resection, Section, Cholecystectomy, Heart Catheterization, Hernia Repair, Hysterectomy, Joint Replacement, Orthopedic Surgery Additional Past Surgical History / Comment(s): arthur bunionectomy and hammer toe, arthur knee replacement, rectal and bladder repair, arthur carpal tunnel, arthur cataracts, angioplasty, left hip replacement, Past Anesthesia/Blood Transfusion Reactions: No Reported Reaction Additional Past Anesthesia/Blood Transfusion Reaction / Comment(s): BLOOD TRANSFUSION-NO REACTION Date of Last Stent Placement:: 2006 Past Psychological History: No Psychological Hx Reported Smoking Status: Never smoker Past Alcohol Use History: None Reported Past Drug Use History: None Reported - Past Family History Mother Family Medical History: Cancer Additional Family Medical History / Comment(s): PANCREATIC CANCER Father Family Medical History: Myocardial Infarction ([place]) <RegNoble - Last Filed: 01/07/18 08:49> General Exam Limitations: no limitations General appearance: alert, in no apparent distress Head exam: Present: atraumatic, normocephalic Eye exam: Present: normal appearance. Absent: scleral icterus, conjunctival injection ENT exam: Present: mucous membranes dry Neck exam: Present: other (Cervical collar) Respiratory exam: Present: normal lung sounds bilaterally. Absent: respiratory distress, wheezes, rales, rhonchi, stridor, chest wall tenderness Cardiovascular Exam: Present: regular rate, normal rhythm, normal heart sounds. Absent: systolic murmur, diastolic murmur, rubs, gallop GI/Abdominal exam: Present: soft. Absent: distended, tenderness, guarding, rebound, rigid Extremities exam: Present: tenderness, normal capillary refill. Absent: full ROM (Pain with range of motion at the right hip and also at the right shoulder) , pedal edema, calf tenderness Neurological exam: Present: alert. Absent: motor sensory deficit Skin exam: Present: warm, dry, intact, normal color. Absent: rash <Noble Finney - Last Filed: 01/07/18 08:49> Vital Signs 01/07/18 01/07/18 05:59 08:51 Temperature 98.7 F Pulse Rate 68 84 Respiratory 18 18 Rate Blood Pressure 124/67 95/58 O2 Sat by Pulse 97 94 L Oximetry Medical Decision Making - Lab Data Result diagrams: 01/07/18 06:20 01/07/18 06:20 <Noble Finney - Last Filed: 01/07/18 08:49> - Lab Data Result diagrams: 01/07/18 06:20 01/07/18 06:20 <Michele Quezada - Last Filed: 01/07/18 09:04> - Medical Decision Making Patient is an 87-year-old woman with a fall. She is found to have dens fracture but it does appear to be chronic and the patient denies having acute neck pain. She states she has some soreness of the neck but she has had this for years. She also indicates lower in the C-spine not near the C2 area. Discussed with the patient and she is requesting that she not be transferred to another hospital, therefore spoke with Yadira Novak who is covering for Dr. Caraballo and they will see the patient if she is admitted. As I cannot get her to ambulate, CT of the L-spine and hip are added, and have paged Dr. Figueroa regarding admission for inability to ambulate. (Noble Finney) - Lab Data Lab Results 01/07/18 01/07/18 Range/Units 06:20 06:20 WBC 5.1 (3.8-10.6) k/uL RBC 4.20 (3.80-5.40) m/uL Hgb 13.1 (11.4-16.0) gm/dL Hct 39.2 (34.0-46.0) % MCV 93.4 (80.0-100.0) fL MCH 31.3 (25.0-35.0) pg MCHC 33.5 (31.0-37.0) g/dL RDW 12.9 (11.5-15.5) % Plt Count 224 (150-450) k/uL Neutrophils % 38 % Lymphocytes % 44 % Monocytes % 9 % Eosinophils % 4 % Basophils % 1 % Neutrophils # 1.9 (1.3-7.7) k/uL Lymphocytes # 2.3 (1.0-4.8) k/uL Monocytes # 0.5 (0-1.0) k/uL Eosinophils # 0.2 (0-0.7) k/uL Basophils # 0.0 (0-0.2) k/uL Sodium 135 L (137-145) mmol/L Potassium 4.1 (3.5-5.1) mmol/L Chloride 103 (98-107) mmol/L Carbon Dioxide 26 (22-30) mmol/L Anion Gap 6 mmol/L BUN 14 (7-17) mg/dL Creatinine 0.60 (0.52-1.04) mg/dL Est GFR (CKD-EPI)AfAm >90 (>60 ml/min/1.73 sqM) Est GFR (CKD-EPI)NonAf 82 (>60 ml/min/1.73 sqM) Glucose 90 (74-99) mg/dL Calcium 9.4 (8.4-10.2) mg/dL Total Bilirubin 0.6 (0.2-1.3) mg/dL AST 24 (14-36) U/L ALT 24 (9-52) U/L Alkaline Phosphatase 67 (38-126) U/L Total Protein 6.3 (6.3-8.2) g/dL Albumin 3.5 (3.5-5.0) g/dL Disposition <Noble Finney - Last Filed: 01/07/18 08:49> Is patient prescribed a controlled substance at d/c from ED?: No <Michele Quezada - Last Filed: 01/07/18 09:04> Clinical Impression: Fall, Dens fracture Disposition: ADMITTED IP TO THIS HOSP Condition: Fair Instructions: Fall Prevention for Older Adults (ED) Referrals: Shai Figueroa MD [Primary Care Provider] - 1-2 days
[2018-01-07] MEDS ORDERED: HYDROmorphone 0.5 MG/0.5 ML SYRINGE IVP STA (07:27)
--- NOTE | 2018-01-07 07:33 | CT ---
EXAM: CT Head Without Intravenous Contrast CLINICAL HISTORY: ITS.REASON CT Reason: Pain TECHNIQUE: Axial computed tomography images of the head/brain without intravenous contrast. CTDI is 57.4 mGy and DLP is 1150.5 mGy-cm. This CT exam was performed using one or more of the following dose reduction techniques: automated exposure control, adjustment of the mA and/or kV according to patient size, and/or use of iterative reconstruction technique. Coronal and sagittal reformatted images were created and reviewed. COMPARISON: No relevant prior studies available. FINDINGS: Brain: No mass effect or edema. No hemorrhage. No significant white matter disease. Ventricles: Enlarged ventricles secondary to involution. Bones/joints: Unremarkable. No acute fracture. Soft tissues: Unremarkable. Vasculature: Moderate chronic vessel ischemic change and global volume loss. Sinuses: Mild mucosal thickening of the ethmoid air cells. Mastoid air cells: Unremarkable as visualized. No mastoid effusion. Orbits: Bilateral lens replacements. IMPRESSION: Moderate chronic vessel ischemic change and global volume loss. No acute intracranial abnormality. EXAM: CT Cervical Spine Without Intravenous Contrast CLINICAL HISTORY: ITS.REASON CT Reason: Pain TECHNIQUE: Axial computed tomography images of the cervical spine without intravenous contrast. CTDI is 18.3 mGy and DLP is 359.7 mGy-cm. This CT exam was performed using one or more of the following dose reduction techniques: automated exposure control, adjustment of the mA and/or kV according to patient size, and/or use of iterative reconstruction technique. Coronal and sagittal reformatted images were created and reviewed. COMPARISON: No relevant prior studies available. FINDINGS: Vertebrae: There is a chronic appearing ununited dens fracture with 3 mm of anterolisthesis of the tip of the dens in relation to the body of C2. No definite acute fracture. Extensive bilateral cervical facet arthropathy. Discs/spinal canal/neural foramina: A prominent calcified disc osteophyte complex is seen at C3/C4 causing a degree of central stenosis. Central stenosis is also suspected at C3/C4, C4/C5 and C5/C6. Bilateral neural foraminal stenosis is seen at C3/C4, C4/C5, C5/C6 and C6/C7. Soft tissues: Unremarkable. IMPRESSION: There is a chronic appearing ununited dens fracture with 3 mm of anterolisthesis of the tip of the dens in relation to the body of C2. No definite acute fracture.
--- NOTE | 2018-01-07 07:39 | XR ---
EXAM: XR Lumbar Spine, 2 or 3 Views CLINICAL HISTORY: ITS.REASON XR Reason: Pain TECHNIQUE: Frontal and lateral views of the lumbar spine. COMPARISON: No relevant prior studies available. FINDINGS: Vertebrae: Grade 1 anterolisthesis of L4 over L5. Levoconvex scoliosis. Diffuse osteopenia. Limiting evaluation. No definite acute fracture. Disc spaces: Disc space narrowing is seen throughout the visualized spine with marginal osteophytes. Soft tissues: Surgical clips within the right upper quadrant. Vasculature: Extensive atherosclerosis. Other findings: Left hip arthroplasty. IMPRESSION: Diffuse osteopenia. Limiting evaluation. No definite acute fracture. Grade 1 anterolisthesis of L4 over L5.
--- NOTE | 2018-01-07 07:41 | XR ---
EXAM: XR Right Humerus, 2 or More Views CLINICAL HISTORY: ITS.REASON XR Reason: Pain TECHNIQUE: Frontal and lateral views of the right humerus. COMPARISON: No relevant prior studies available. FINDINGS: Bones/joints: Degenerative changes are seen involving the humeral radial joint with ossicles. Elevation of the humeral head with degenerative changes of the acromion which may reflect chronic rotator cuff tear. No acute fracture. No dislocation. Soft tissues: Unremarkable. IMPRESSION: Degenerative changes are seen involving the humeral radial joint with ossicles. Elevation of the humeral head with degenerative changes of the acromion which may reflect chronic rotator cuff tear. No acute fracture.
--- NOTE | 2018-01-07 07:44 | XR ---
EXAM: XR Right Hip With Pelvis When Performed, 3 Views CLINICAL HISTORY: Reason: Pain TECHNIQUE: Three views of the right hip, with pelvis when performed. COMPARISON: No relevant prior studies available. FINDINGS: Bones/joints: Left hip arthroplasty. Joint space narrowing of the right hip with marginal osteophytes and ossicles. No acute fracture. No dislocation. Soft tissues: Unremarkable. IMPRESSION: Left hip arthroplasty. Joint space narrowing of the right hip with marginal osteophytes and ossicles. No acute fracture.
[2018-01-07] MEDS ORDERED: SODIUM CHLORIDE 0.9% 1,000 ML IV ONE (09:02)
--- NOTE | 2018-01-07 10:36 | CT ---
EXAMINATION TYPE: CT lumbar spine wo con DATE OF EXAM: 01/07/2018 10:28 AM COMPARISON: None. HISTORY: Low back and Right hip pain. CT DLP: 405.1 mGycm Automated exposure control for dose reduction was used. Unenhanced CT of the lumbar spine was performed. Bone and soft tissue window settings are submitted as well as coronal and sagittal reconstructions. FINDINGS: Visualized portions of the lungs are clear. There is moderate atheromatous calcification of the visualized arterial tree. Paraspinal soft tissues are otherwise normal. There is a antegrade listhesis of L4 and L5 which is between grade 1 antegrade 2. There is a retrograde listhesis of L1 on L2. At T12-L1, there is disc space loss and a vacuum phenomena. There is hypertrophic spondylosis present anteriorly. Intervertebral foramina are reasonably well-maintained. There is no significant compress juana discopathy. L1-L2: There is disc space loss. This hypertrophic spondylosis present. The intervertebral foramina a re reasonably well-maintained. There is no significant compressive discopathy. There are mild hypertr ophic changes within the facets. L2-L3: There is disc space loss. There is a vacuum phenomena. This hypertrophic spondylosis. There is right-sided intervertebral foraminal narrowing. There is no significant compressive discopathy. Ther e is facet arthropathy worse on the right than the left. L3-L4: There is disc space loss and a vacuum phenomena. There is facet arthropathy, worse on the righ t than the left. The intervertebral foramina appear reasonably well-maintained. There is a diffuse di sc displacement. There is moderate central canal compromise. L4-L5: There is a degenerative grade 1 bordering on grade 2 spondylolisthesis of L4 and L5. This is d ue to severe facet arthropathy. There is a pseudodisc present. There is severe central canal stenosis . L5-S1: There is disc space loss and hypertrophic spondylosis anteriorly. There is no significant comp ressive discopathy. There is bilateral intervertebral foraminal narrowing, worse on the left than the right. There is facet arthropathy. IMPRESSION: 1. 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 2. 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 3. MULTILEVEL INTERVERTEBRAL FORAMINAL NARROWING. 4. VARYING DEGREES OF CENTRAL CANAL COMPROMISE, MOST MARKED AT L3-4 AND L4-5.
--- NOTE | 2018-01-07 10:39 | CT ---
EXAMINATION TYPE: CT hip RT wo con DATE OF EXAM: 01/07/2018 COMPARISON: None. HISTORY: Low back and Right hip pain. CT DLP: 344 mGycm Automated exposure control for dose reduction was used. FINDINGS: There is moderate atheromatous calcification of the visualized arterial tree. There are concepción cifications in the soft tissues of the buttocks which may be old granulomatous change. There is degenerative changes within the hips. No fracture or dislocation is seen. IMPRESSION: 1. NO ACUTE OSSEOUS LESION. 2. DEGENERATIVE CHANGE.
[2018-01-07 11:31] VITALS: BMI 30.1
[2018-01-07] MEDS ORDERED: MORPHINE SULFATE 2 MG/ML SYRINGE IVP PRN (12:13)
--- NOTE | 2018-01-07 13:02 | P.CNOR ---
History of Present Illness - [facility] Consult date: 01/07/18 Consult reason: low back pain History of present illness: This is an 87-year-old female who fell last evening while getting up to the bathroom. She states that she has pain to the posterior right hip and low back. She has history of chronic low back pain as well as neck pain. She states that she did have neck injury several years ago where she sustained a whiplash. She has had difficulty ambulating since the recent fall. She is admitted to internal medicine. We're consulted for orthopedic evaluation of her neck pain and low back pain. CT findings revealed a chronic dens fracture. Past Medical History Past Medical History: Cancer, Deep Vein Thrombosis (DVT), GERD/Reflux, Myocardial Infarction (OK), Osteoarthritis (OA) Additional Past Medical History / Comment(s): see Dr Guerrero H&P, gets SOB, DVT left leg 2015, hiatal hernia, hx colon cancer, hx skin cancer, degeneration of spine, Last Myocardial Infarction Date:: 2008 History of Any Multi-Drug Resistant Organisms: None Reported Past Surgical History: Bladder Surgery, Bowel Resection, Section, Cholecystectomy, Heart Catheterization, Hernia Repair, Hysterectomy, Joint Replacement, Orthopedic Surgery Additional Past Surgical History / Comment(s): arthur bunionectomy and hammer toe, arthur knee replacement, rectal and bladder repair, arthur carpal tunnel, arthur cataracts, angioplasty, left hip replacement, Past Anesthesia/Blood Transfusion Reactions: No Reported Reaction Additional Past Anesthesia/Blood Transfusion Reaction / Comm: BLOOD TRANSFUSION- NO REACTION Date of Last Stent Placement:: 2006 Smoking Status: Never smoker - Past Family History Mother Family Medical History: Cancer Additional Family Medical History / Comment(s): PANCREATIC CANCER Father Family Medical History: Myocardial Infarction (OK) Medications and Allergies Home Medications Medication Instructions Recorded Confirmed Type Docusate [Colace] 100 mg PO TID 05/29/15 01/07/18 History Ergocalciferol [Vitamin D2 50,000 unit PO SABA 05/29/15 01/07/18 History (DRISDOL)] HYDROcodone/APAP 5-325MG [[place] 1 tab PO Q4HR PRN 05/29/15 01/07/18 History 5-325] Isosorbide Mononitrate ER [Imdur] 30 mg PO BID 05/29/15 01/07/18 History Naloxegol Oxalate [Movantik] 25 mg PO Q48H PRN 05/29/15 01/07/18 History Aspirin EC [Ecotrin Low Dose] 81 mg PO DAILY 07/24/17 01/07/18 History Halobetasol Propionate 1 applic TOPICAL BID PRN 07/24/17 01/07/18 History Lidocaine 5% Patch [Lidoderm] 1 patch TOPICAL DAILY PRN 07/24/17 01/07/18 History Pantoprazole [Protonix] 40 mg PO BID 07/24/17 01/07/18 History diphenhydrAMINE [Benadryl] 50 mg PO HS PRN 07/24/17 01/07/18 History Nitroglycerin Sl Tabs [Nitrostat] 0.4 mg SUBLINGUAL Q5M PRN #1 bottle 07/26/17 01/07/18 Rx Metoprolol Tartrate 12.5 mg PO QAM 08/16/17 01/07/18 History Vit C/E/Zn/Coppr/Lutein/Zeaxan 1 cap PO DAILY 08/16/17 01/07/18 History [Preservision Areds 2 Softgel] Budesonide [Pulmicort] 0.5 mg INHALATION RT-BID 01/07/18 01/07/18 History Citalopram Hydrobromide [CeleXA] 20 mg PO DAILY 01/07/18 01/07/18 History Clobetasol Propionate [Temovate 1 applic TOPICAL DAILY 01/07/18 01/07/18 History 0.05% Cream] Nystatin 1 applic TOPICAL DAILY PRN 01/07/18 01/07/18 History Polyethylene Glycol 3350 [Miralax] 17 gm PO DAILY PRN 01/07/18 01/07/18 History Allergies Allergy/AdvReac Type Severity Reaction Status Date / Time azithromycin [From Zithromax] Allergy Unknown Verified 01/07/18 11:25 bacitracin Allergy Unknown Verified 01/07/18 11:25 [From Neosporin ([id number])] bacitracin zinc Allergy Unknown Verified 01/07/18 11:25 [From Neosporin ([id number])] ciprofloxacin [From Cipro] Allergy Unknown Verified 01/07/18 11:25 ciprofloxacin HCl Allergy Unknown Verified 01/07/18 11:25 [From Cipro] codeine Allergy Unknown Verified 01/07/18 11:25 fenofibrate Allergy Unknown Verified 01/07/18 11:25 fenofibrate nanocrystallized Allergy Unknown Verified 01/07/18 11:25 [From Tricor] fenofibrate,micronized Allergy Unknown Verified 01/07/18 11:25 [From Tricor] hydromorphone HCl Allergy Unknown Verified 01/07/18 11:25 [From Dilaudid] latex Allergy swelling Verified 01/07/18 11:25 of lips and mouth neomycin sulfate Allergy Unknown Verified 01/07/18 11:25 [From Neosporin ([id number])] Penicillins Allergy Unknown Verified 01/07/18 11:25 pentazocine lactate Allergy Unknown Verified 01/07/18 11:25 [From Talwin] polymyxin B Allergy Unknown Verified 01/07/18 11:25 [From Neosporin ([id number])] shellfish derived Allergy Unknown Verified 01/07/18 11:25 simvastatin Allergy Unknown Verified 01/07/18 11:25 sucralfate Allergy Unknown Verified 01/07/18 11:25 meperidine [From Demerol] AdvReac Nausea & Verified 01/07/18 11:25 Vomiting naproxen [From Naprosyn] AdvReac Nausea Verified 01/07/18 11:25 tramadol [From Ultram] AdvReac Nausea & Verified 01/07/18 11:25 Vomiting Physical Examination This is an 87-year-old female in no acute distress. She is alert and oriented 3. Exam of the head and neck reveal no obvious deformities. She has full cervical spine motion without difficulty. There is mild pain with rotation to the right. There is no pain on palpation about the cervical spine or paraspinal musculature. Exam of the upper extremities unremarkable. She has fairly good motion to the shoulders, elbows, wrists and fingers. Neurovascular status to the upper extremities is intact. Exam of the thoracic and lumbar spine reveal no obvious deformities. There is mild pain with palpation about the lower lumbar region. Exam of the lower extremities reveals no obvious deformity. She can lift each leg off the bed independently. Total knee scar is noted bilaterally. Full motion to the hips without difficulty. Neurovascular status to the lower extremities is intact. Results CT of the head neck reveal degenerative changes to the cervical spine. There is findings consistent with an old fracture of the dens with degeneration in this area. Pelvis and hip x-rays revealed no bony abnormality. There are hip components in place to the left hip. No fractures identified. Lumbar CT reveals significant degenerative changes to the lumbar spine with spondylolisthesis at L4 5. No fractures noted. - Labs Labs: Abnormal Lab Results - Last 24 Hours (Table) 01/07/18 Range/Units 06:20 Sodium 135 L (137-145) mmol/L H & H 01/07/18 Range/Units 06:20 Hgb 13.1 (11.4-16.0) gm/dL Hct 39.2 (34.0-46.0) % Result Diagrams: 01/07/18 06:20 01/07/18 06:20 Assessment and Plan (1) Spondylolisthesis, lumbar region Current Visit: Yes Status: Acute Code(s): M43.16 - SPONDYLOLISTHESIS, LUMBAR REGION SNOMED Code(s): 416074366473937 (2) Dens fracture Current Visit: Yes Status: Acute Code(s): S12.100A - UNSP DISP FX OF SECOND CERVICAL VERTEBRA, INIT FOR CLOS FX SNOMED Code(s): 032093841 (3) Fall Current Visit: Yes Status: Acute Code(s): W19.XXXA - UNSPECIFIED FALL, INITIAL ENCOUNTER SNOMED Code(s): 5922397 (4) Right knee pain Current Visit: Yes Status: Acute Code(s): M25.561 - PAIN IN RIGHT KNEE SNOMED Code(s): 53104911 (5) Low back pain Current Visit: Yes Status: Acute Code(s): M54.5 - LOW BACK PAIN SNOMED Code(s): 756907455 Plan: The clinical and radiographic findings are discussed with the patient. We'll place her in a soft collar for comfort. I will review the case with Dr. Caraballo. It is recommended she have an x-ray of the right knee to rule out fracture. I've ordered physical therapy for ambulation. We'll continue to follow.
[2018-01-07] MEDS: HYDROcodone/APAP 5-325MG 1 EACH TAB PO PRN ×2 (13:18→20:59)
--- NOTE | 2018-01-07 13:19 | XR ---
EXAMINATION TYPE: XR knee complete RT , 3 VIEWS DATE OF EXAM ORDERED: 01/07/2018 HISTORY: right knee pain, s/p fall. COMPARISON: None. FINDINGS: There is a right knee arthroplasty in place. Prosthetic elements appear in good position. No fracture or dislocation is seen. There are phleboliths in the superficial veins. IMPRESSION: STATUS POST RIGHT KNEE ARTHROPLASTY.
[2018-01-07] MEDS: methylPREDNISolone SOD SUCCI 125 MG/2 ML VIAL IV SCH ×2 (15:41→23:51)
[2018-01-07] MEDS ORDERED: diphenhydrAMINE 25 MG CAP PO PRN (18:46)
[2018-01-07] MEDS ORDERED: POLYETHYLENE GLYCOL 3350 17 GM POWD.PACK PO PRN (18:46)
[2018-01-07] MEDS ORDERED: NYSTATIN 100,000UNIT/GM CREAM 30 GM TUBE TOPICAL PRN (18:46)
[2018-01-07] MEDS ORDERED: NON-FORMULARY DRUG (Naloxegol Oxalate [Movantik] 25 MG) PO PRN (18:46)
[2018-01-07] MEDS: BUDESONIDE 0.5 MG/2 ML NEBU INHALATION SCH (20:19)
[2018-01-07] MEDS: ISOSORBIDE MONONITRATE ER 30 MG TAB.ER.24H PO SCH (20:58)
[2018-01-07] MEDS: DOCUSATE 100 MG CAP PO SCH (20:59)
[2018-01-07] MEDS: PANTOPRAZOLE 40 MG TABLET PO SCH (20:59)
[2018-01-07] MEDS: CITALOPRAM HYDROBROMIDE 20 MG TAB PO SCH (20:59)
--- NOTE | 2018-01-07 22:13 | HP ---
HISTORY AND PHYSICAL CHIEF COMPLAINT: 87-year-old, female fell walking up to the bathroom. Pain in her posterior right hip, lower back, chronic back pain. She has a history of a neck injury years ago from a whiplash injury. PAST MEDICAL HISTORY: Cancer, DVT, GERD, myocardial infarction, osteoarthritis, hiatal hernia, history of colon cancer, skin cancer, degeneration of spine, bladder surgery, bowel resection, C- section, cholecystectomy, heart catheterization, hernia repair, hysterectomy, joint replacement, orthopedic surgery, bilateral bunionectomy, bilateral knee replacement, rectal bladder repair, bilateral carpal tunnel, bilateral cataracts, angioplasty, left hip replacement. FAMILY HISTORY: Mother with pancreatic cancer. Father myocardial infarction. HOME MEDICATIONS: Colace, vitamin D, [place] 5, Imdur, Movantik, Ecotrin, lidocaine patch, Protonix, Benadryl, Nitrostat, metoprolol, Pulmicort, Celexa, Temovate, nystatin, MiraLAX. ALLERGIES: ALLERGIES IS ERYTHROMYCIN, BACITRACIN, CIPRO, CODEINE, FENOFIBRATE, HYDROMORPHONE, LATEX, NEOMYCIN, PENICILLIN, SHELLFISH, SIMVASTATIN, SUCRALFATE, DEMEROL, NAPROSYN, TRAMADOL. PHYSICAL EXAMINATION: This is an 87-year-old white female, alert, oriented x3. CARDIOVASCULAR: S1, S2. She has some mild tenderness from the cervical spinal muscles on musculoskeletal exam. Neurovascular intact. Upper thoracic and lumbar, no acute injury or petechia seen. She can lift her legs out of bed bilaterally. Neuro intact. CT scan shows an old fracture of the dens with degeneration in this area. Pelvic and hip x-rays were negative. Lumbar CT shows spinal lithiasis. No fractures. ASSESSMENT: Spondylolisthesis, lumbar region dense fracture, fall, right knee pain, low back pain, soft collar for neck comfort. Dr. Caraballo is going to evaluate her, do an x-ray of the knee. PT/OT. Possible discharge home soon. MMODL / IJN: [id number] /
[2018-01-08] MEDS: HYDROcodone/APAP 5-325MG 1 EACH TAB PO PRN ×2 (07:15→20:57)
[2018-01-08] MEDS: BUDESONIDE 0.5 MG/2 ML NEBU INHALATION SCH ×2 (07:16→18:39)
[2018-01-08] MEDS: PANTOPRAZOLE 40 MG TABLET PO SCH ×2 (07:17→22:02)
[2018-01-08] MEDS: ENOXAPARIN 40 MG/0.4 ML SYRINGE SQ SCH (07:17)
[2018-01-08] MEDS: METOPROLOL TARTRATE 12.5 MG TAB PO SCH (07:17)
[2018-01-08] MEDS: VIT A,C & E-LUTEIN-MINERALS 1 EACH TAB PO SCH (07:17)
[2018-01-08] MEDS: ISOSORBIDE MONONITRATE ER 30 MG TAB.ER.24H PO SCH ×2 (07:17→20:58)
[2018-01-08] MEDS: DOCUSATE 100 MG CAP PO SCH ×3 (07:18→20:58)
[2018-01-08] MEDS: ASPIRIN 81 MG PO SCH (07:18)
[2018-01-08] MEDS: methylPREDNISolone SOD SUCCI 125 MG/2 ML VIAL IV SCH (07:18)
--- NOTE | 2018-01-08 08:54 | P.PN ---
Subjective Progress Note Date: 01/08/18 Principal diagnosis: Low back pain. Right hip pain. An 87-year-old female who we're following regarding her right hip and low back pain. She states that her neck pain is improved today. Her right hip pain was quite severe this morning but has improved now with pain medication. She also states that she had some left-sided jaw pain today when she was eating breakfast which is now resolved. She did not report her pain to the nursing staff. Objective - Vital Signs Vital signs: Vital Signs Temp 97.0 F L 01/08/18 05:00 Pulse 78 01/08/18 05:00 Resp 16 01/08/18 05:00 BP 125/69 01/08/18 05:00 Pulse Ox 95 01/08/18 05:00 Intake & Output 01/07/18 01/08/18 01/08/18 18:59 06:59 18:59 Intake Total 200 1150 Output Total 125 Balance 200 1025 Weight 61 kg Intake: Intake, IV Titration 200 1150 Amount Sodium Chloride 0.9% 1, 200 1150 000 ml @ 100 mls/hr IV . Q10H ONE Rx#:[id number] Output: Urine 125 Other: Voiding Method Bedside Commode Urinal Diaper Diaper # Voids 1 - Exam This is a pleasant 87-year-old female in no acute distress. She is alert and oriented 3. Exam of the head neck reveal a small bump about the right side of her head. The area is slightly tender with palpation. She has fairly good cervical spine motion without difficulty. Minimal pain with palpation about the cervical spine or paraspinal musculature. Exam of the thoracic and lumbar spine reveal no obvious deformity. There is mild pain on palpation about the lower right paraspinal musculature and right. Exam of the lower extremities reveals no obvious deformity. She is able lift each leg off the bed independently with mild pain. No pain with logroll bilaterally. Neurovascular status to the lower extremities is intact. - Labs CBC & Chem 7: 01/07/18 06:20 01/07/18 06:20 Assessment and Plan (1) Spondylolisthesis, lumbar region Current Visit: Yes Status: Acute Code(s): M43.16 - SPONDYLOLISTHESIS, LUMBAR REGION SNOMED Code(s): 017242782933675 (2) Dens fracture Current Visit: Yes Status: Acute Code(s): S12.100A - UNSP DISP FX OF SECOND CERVICAL VERTEBRA, INIT FOR CLOS FX SNOMED Code(s): 699393792 (3) Fall Current Visit: Yes Status: Acute Code(s): W19.XXXA - UNSPECIFIED FALL, INITIAL ENCOUNTER SNOMED Code(s): 1705374 (4) Right knee pain Current Visit: Yes Status: Acute Code(s): M25.561 - PAIN IN RIGHT KNEE SNOMED Code(s): 60722293 (5) Low back pain Current Visit: Yes Status: Acute Code(s): M54.5 - LOW BACK PAIN SNOMED Code(s): 675336062 Plan: The clinical and radiographic findings are discussed with the patient. Awaiting placement of soft cervical collar. Anticipate the need for inpatient rehab. I've ordered physical therapy for ambulation. We'll continue to follow.
[2018-01-08] MEDS: CITALOPRAM HYDROBROMIDE 20 MG TAB PO SCH (20:58)
--- NOTE | 2018-01-08 22:20 | PN ---
PROGRESS NOTE SUBJECTIVE: 87-year-old white female with a fall with fracture and hip contusion, complaining of severe pain in her right hip and limited ambulation due to severe pain. We are going to try to get her into the [facility] where is tomorrow for physical therapy. PHYSICAL: Vital signs stable. Afebrile. Cardiovascular S1, S2. LUNGS: Clear. GI soft. Hematology: Negative Homans. ASSESSMENT: 1. Hip contusion. 2. Generalized debility. 3. fracture. 4. Knee contusion. 5. Chronic obstructive pulmonary disease. 6. Coronary artery disease. 7. Gastroesophageal reflux disease. 8. History of cancer. 9. Deep vein thrombosis. 10.Myocardial infarction. 11.Osteoarthritis. 12.History of skin cancer, colon cancer. 13.Hiatal hernia. 14.Degeneration of the spine. Please see further orders. MMODL / IJN: [id number] /
[2018-01-09] MEDS: BUDESONIDE 0.5 MG/2 ML NEBU INHALATION SCH ×2 (07:13→20:02)
[2018-01-09] MEDS: ENOXAPARIN 40 MG/0.4 ML SYRINGE SQ SCH (08:00)
[2018-01-09] MEDS: PANTOPRAZOLE 40 MG TABLET PO SCH ×2 (08:01→21:08)
[2018-01-09] MEDS: DOCUSATE 100 MG CAP PO SCH ×3 (08:01→21:09)
[2018-01-09] MEDS: METOPROLOL TARTRATE 12.5 MG TAB PO SCH (08:01)
[2018-01-09] MEDS: VIT A,C & E-LUTEIN-MINERALS 1 EACH TAB PO SCH (08:01)
[2018-01-09] MEDS: ASPIRIN 81 MG PO SCH (08:01)
[2018-01-09] MEDS: ISOSORBIDE MONONITRATE ER 30 MG TAB.ER.24H PO SCH ×2 (08:02→21:08)
--- NOTE | 2018-01-09 08:54 | P.PN ---
Progress Note - Text Progress Note Date: 01/09/18 Patient is a very pleasant 87-year-old female who is seen and examined at bedside for follow-up evaluation for an exacerbation of chronic low back pain with right-sided low back pain, right hip pain, and right knee pain. She initially sustained a fall on 01/07/2018 and was brought to [facility] for further evaluation. Imaging taken at that time did not show any evidence of acute fracture or dislocation of the lumbar spine, cervical spine or right hip. X-rays of the right knee were performed yesterday which showed evidence of a right total knee arthroplasty without evidence of hardware fracture. There were no other findings of fracture or dislocation of the right knee. Patient states she does feel better today as compared to yesterday. She does not feel she would be able to ambulate and perform activities of daily living at home on her own. Her currently is being treated it [facility]. Case management has seen the patient and is discussing discharged to [facility] as early as tomorrow, 01/10/2018, if her symptoms are able to be controlled. She is known tohave chronic low back pain and follows with Dr. Betancur in the outpatient setting. She states she was scheduled to undergo further injections prior to her fall. While in the hospital, she does not wish for consultation with pain management as she feels Dr. Betancur knows her well and she does not wish to establish care with another provider. She feels with the improvement of her pain, if her symptoms continue to improve, she could follow-up with Dr. Betancur in the outpatient setting and proceed forward with injections as planned. Patient is known to have a chronic dens fracture. She is not currently experiencing any significant cervical pain. A soft collar was delivered to the room yesterday. She has not been wearing this brace. She feels her cervical symptoms are at their baseline. She does have a small bruise over the anterior lateral forehead following her fall. She has no complaints in regards to the upper extremities bilaterally. She has no new complaints today. Physical exam: Patient is awake, alert, and oriented 3 Vital signs stable Good chest excursion with deep inspiration and expiration Abdomen soft nontenderxamination of lumbar spine reveals skin is intact with no abrasions, aspirations, or bruises; no erythema, purulence or signs of infection Dorsiflexion, plantarflexion, and extensor hallucis longus positive sustained bilaterally Lower extremity strength positive sustained bilaterally; patient is able to lift legs independently off the bed without significant difficulty No signs or symptoms of DVT; no calf pain No pain with internal and external rotation of the hips bilaterally Neurovascularly intact Active range of motion of the cervical spine and bilateral upper extremities without difficulty Evidence of a bruise over the right anterior lateral forehead Pertinent studies: X-rays of the right knee: Evidence of right total knee arthroplasty; no evidence of hardware fracture, loosening, or fatigue; no evidence of other fracture or dislocation of the right knee CT of the lumbar spine: Diffuse facet arthropathy and degenerative disc disease ; L4-5 grade 1-2 spondylolisthesis; multilevel intravertebral foraminal narrowing; very degrees of central canal compromise most marked at L3-4 and L4-5 CT of the right hip: No acute osseous lesion; no evidence of fracture dislocation; degenerative changes within the hip CT of the head and cervical spine: Moderate chronic vessel ischemic change and global volume loss; no acute intracranial abnormality; chronic appearing ununited dens fracture with 3 mm of anterolisthesis of the tip of the dens ambulation to the vertebral body of C2; no definite acute fracture; central stenosis and bilateral neural foraminal stenosis suspected at C3-4, C4-5, and C5 -6; C6-7 bilateral neural foraminal stenosis Assessment: Acute on chronic low back pain, right-sided Right hip pain Right knee pain Status post fall Chronic dens fracture Significant degenerative changes of the cervical spine and lumbar spine Plan: 1. After further discussion with the patient, reviewing of imaging, and physical examination, we are not currently planning for surgical intervention regards to her lumbar spine or further imaging. At this time, she feels her symptoms have improved as compared to yesterday. Her symptoms do continue to be present. She does not feel she could take care of herself at home given her current symptoms. Patient has been seen and examined by case management. They are currently planning for discharge to [facility] once cleared by medicine and when her pain is better controlled. At this time we will refrain from consultation with pain management as she undergoes injections and treatment with Dr. Betancur in the outpatient setting. She would like to continue following him in the outpatient setting and does not wish to have further evaluation here in the hospital. Patient may continue pain medications as prescribed by medicine. From an orthopedic spine standpoint, patient is clear for discharge once cleared by medicine. She has a history of chronic dens fracture. We are not planning further treatment or evaluation regards to her cervical spine. She may wear a soft cervical collar for comfort support as needed. 2. Following discharge, patient may follow-up with Dr. Betancur in pain management for further evaluation and treatment as previously scheduled. She may also call office to set up an earlier appointment if needed. 3. Patient has been discussed in detail with Dr. Patrick Caraballo and he agrees with this plan.
[2018-01-09] MEDS: HYDROcodone/APAP 5-325MG 1 EACH TAB PO PRN (10:52)
[2018-01-09] MEDS ORDERED: NA PHOS,M-B/NA PHOS,DI-BA 133 ML ENEMA RECTAL STA (17:02)
[2018-01-09] MEDS: CITALOPRAM HYDROBROMIDE 20 MG TAB PO SCH (21:08)
--- NOTE | 2018-01-09 21:10 | PN ---
PROGRESS NOTE SUBJECTIVE: 87-year-old white female with a fall with a dense fracture, hip contusion, knee contusion, waiting to go to the shelter tomorrow to get approved. She has got PT/OT working with her. She has history of heart disease, hypertension, multiple comorbidities. Cardiovascular S1-S2. Lungs clear. GI soft. Tenderness to palpation over the left hip. On musculoskeletal exam strength is 3 to 4/5. ASSESSMENT: 1. Multiple contusions, hip, knee, scalp contusion. 2. Dense fracture of the cervical spine. Continue current PT/OT. Await for physical therapy and shelter placement tomorrow. MMODL / IJN: [id number] /
[2018-01-10] MEDS: BUDESONIDE 0.5 MG/2 ML NEBU INHALATION SCH (07:49)
[2018-01-10 08:03] VITALS: BP 109/66; PULSE 64; RESP 16; TEMP 98.6
[2018-01-10] MEDS: VIT A,C & E-LUTEIN-MINERALS 1 EACH TAB PO SCH (08:33)
[2018-01-10] MEDS: ENOXAPARIN 40 MG/0.4 ML SYRINGE SQ SCH (08:33)
[2018-01-10] MEDS: DOCUSATE 100 MG CAP PO SCH (08:33)
[2018-01-10] MEDS: METOPROLOL TARTRATE 12.5 MG TAB PO SCH (08:33)
[2018-01-10] MEDS: ISOSORBIDE MONONITRATE ER 30 MG TAB.ER.24H PO SCH (08:33)
[2018-01-10] MEDS: PANTOPRAZOLE 40 MG TABLET PO SCH (08:34)
[2018-01-10] MEDS: ASPIRIN 81 MG PO SCH (08:34)
--- NOTE | 2018-01-10 20:02 | DS ---
DISCHARGE SUMMARY DATE OF DISCHARGE: 01/10/2018 DATE OF ADMISSION: 01/07/2018 CONDITION: Stable. PROGNOSIS: Guarded. Ambulate as tolerated. DISCHARGE DIAGNOSES: 1. Right knee contusion. 2. Right hip contusion. 3. Cervical contusion. 4. Skull contusion. 5. Dens fracture, cervical spine. 6. Generalized arthritis. 7. Hypertension. 8. Coronary artery disease. 9. Depression. 10.Chronic pain syndrome. 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 DISCHARGE MEDICATIONS: 1. Colace 100 mg t.i.d. 2. Vitamin D 50,000 units weekly. 3. Imdur 30 mg b.i.d. 4. Movantik 25 mg every 48 hours. 5. Aspirin 81 mg daily. 6. Halobetasol propionate topical b.i.d. 7. Lidocaine patch 5% apply topically daily, especially to the right hip and possible cervical spine. 8. Protonix 40 mg b.i.d. 9. Benadryl 50 mg at bedtime. 10.Pulmicort 0.5 mg inhalation b.i.d. 11.Nystatin topically b.i.d. under rash p.r.n. 12.Celexa 20 mg a day for depression. 13.Metoprolol 12.5 mg each morning. 14.Temovate cream p.r.n. topically daily. 15.Vitamin C/E/zinc/copper/lutein/Zeaxan 1 tablet daily. 16.Polyethylene glycol or MiraLAX 17 grams p.o. daily p.r.n. for constipation. HOSPITAL COURSE OF EVENTS: This patient is an 87-year-old white female who came in with a fall diagnosed by [facility]. She had a dens fracture of the cervical spine and contusions to the right knee, the right hip, skull. She was cleared by [facility] for discharge, but she will need physical therapy in a rehab center. She has severe pain with movement and difficulty with pain, especially in her right hip and right knee, which were found to have no fractures per [facility]. The patient will follow up in the next [address] Figueroa's care at [facility]. MMCOLTONL / MERCEDESN: [id number] /
== END 2018-01-10 14:59 | DRG 605 ==
LOC: EC 05:56 → 5MS5E 09:02
PROVIDERS: ADMIT Family Medicine; ATTEND Family Medicine
DX: S70.01XA Contusion of right hip, initial encounter (principal); S12.9XXA Fracture of neck, unspecified, initial encounter; J44.9 Chronic obstructive pulmonary disease, unspecified; S80.01XA Contusion of right knee, initial encounter; M43.16 Spondylolisthesis, lumbar region; S00.83XA Contusion of other part of head, initial encounter; S00.03XA Contusion of scalp, initial encounter; M15.9 Polyosteoarthritis, unspecified; K59.03 Drug induced constipation; T40.605A Adverse effect of unspecified narcotics, initial encounter; I10 Essential (primary) hypertension; I25.10 Atherosclerotic heart disease of native coronary artery without angina pectoris; F32.9 Major depressive disorder, single episode, unspecified; G89.4 Chronic pain syndrome; K21.9 Gastro-esophageal reflux disease without esophagitis; R26.2 Difficulty in walking, not elsewhere classified; K44.9 Diaphragmatic hernia without obstruction or gangrene; I25.2 Old myocardial infarction; Z79.82 Long term (current) use of aspirin; Z79.51 Long term (current) use of inhaled steroids; Z79.899 Other long term (current) drug therapy; Z85.038 Personal history of other malignant neoplasm of large intestine; Z85.828 Personal history of other malignant neoplasm of skin; Z90.49 Acquired absence of other specified parts of digestive tract; Z96.653 Presence of artificial knee joint, bilateral; Z96.642 Presence of left artificial hip joint; Z98.42 Cataract extraction status, left eye; Z98.41 Cataract extraction status, right eye; Z90.710 Acquired absence of both cervix and uterus; Z86.718 Personal history of other venous thrombosis and embolism; Z88.8 Allergy status to other drugs, medicaments and biological substances; Z88.1 Allergy status to other antibiotic agents; Z91.040 Latex allergy status; Z88.5 Allergy status to narcotic agent; Z88.0 Allergy status to penicillin; Z91.013 Allergy to seafood; W01.0XXA Fall on same level from slipping, tripping and stumbling without subsequent striking against object, initial encounter; Y92.003 Bedroom of unspecified non-institutional (private) residence as the place of occurrence of the external cause; Y93.01 Activity, walking, marching and hiking; Z80.0 Family history of malignant neoplasm of digestive organs; Z82.49 Family history of ischemic heart disease and other diseases of the circulatory system
CPT/HCPCS: 36415; 70450; 72100; 72125; 72131; 73502; 80053; 85025; 93005; 96374; 96375; 99285

== ENCOUNTER → 2018-03-01 | Outpatient (CLI) | payer MEDICARE, BC ==
[2018-03-01 13:19] LABS: Blood Urea Nitrogen 18 mg/dL (7-17)
--- NOTE | 2018-03-01 17:14 | CT ---
EXAMINATION TYPE: CT abdomen pelvis w con DATE OF EXAM: 03/01/2018 COMPARISON: Prior CT 10/11/2017 HISTORY: History of colon cancer and newer diagnosis of pancreatic cancer. CT DLP: 880 mGycm Automated exposure control for dose reduction was used. TECHNIQUE: Helical acquisition of images from the lung bases through the pelvis have been completed. CONTRAST: Performed with Oral Contrast and with IV Contrast, patient injected with 100 mL of Isovue M300. FINDINGS: There is a hiatal hernia with partial fixed intrathoracic stomach. LUNG BASES: No significant abnormality is appreciated. AORTA: No significant abnormality is appreciated. LIVER/GB: No evident liver mass. Gallbladder is absent. PANCREAS: Pancreatic mass measures approximately 6.1 x 3.4 x 3.3 cm as compared to prior when it raciel ured 5.3 x 3 x 2.9 cm.. SPLEEN: No significant abnormality is seen. ADRENALS: No significant abnormality is seen. KIDNEYS: No significant interval change is seen. REPRODUCTIVE ORGANS: No significant abnormality is seen BOWEL: Diverticular change again noted within the colon. No evident bowel obstruction. Nonspecific w all thickening in the sigmoid colon is present possibly due to muscular hypertrophy. Stable postop ch anges, ventral abdominal wall hernia contains fat the left hemiabdomen. FREE AIR: No Free Air visible. ASCITES: None visible. PELVIC ADENOPATHY: None visualized. RETROPERITONEAL ADENOPATHY: No Retroperitoneal Adenopathy visible. URINARY BLADDER: No significant abnormality is seen. OSSEOUS STRUCTURES: Stable, there is spinal curvature. Degenerative changes are present in the visua lized spine. Postop change noted to the left hip. Injection granuloma in the gluteal regions. IMPRESSION: THERE IS BEEN SOME INTERVAL GROWTH OF PATIENT'S PANCREATIC MASS. DIVERTICULOSIS, HIATAL HERNIA, POSTO P CHANGES.
== END ==
LOC: RADCTMAIN 12:14
PROVIDERS: ATTEND Internal Medicine Hematology & Oncology
DX: C18.6 Malignant neoplasm of descending colon (principal); K57.90 Diverticulosis of intestine, part unspecified, without perforation or abscess without bleeding; K44.9 Diaphragmatic hernia without obstruction or gangrene; Z98.890 Other specified postprocedural states; Z91.040 Latex allergy status; Z91.013 Allergy to seafood
CPT/HCPCS: 82565; 84520; 74177; 36415; Q9967

== ENCOUNTER 2018-07-03 10:44 | Emergency (ER) | payer MEDICARE, BC ==
[2018-07-03] MEDS ORDERED: SODIUM CHLORIDE 0.9% 1,000 ML IV STA (11:19)
[2018-07-03] MEDS ORDERED: ASPIRIN 81 MG PO STA (11:46)
--- NOTE | 2018-07-03 11:47 | ED ---
General Adult HPI - General Source: patient, EMS, RN notes reviewed, old records reviewed Mode of arrival: EMS Limitations: no limitations <Kaylin Quinonez - Last Filed: 07/06/18 11:41> <Scott Strickland - Last Filed: 07/06/18 17:25> - General Chief complaint: Chest Pain Stated complaint: Chest pain Time Seen by Provider: 07/03/18 11:01 - History of Present Illness Initial comments: Patient is an 87-year-old female who presents emergency Department today with complaints of onset of chest pain this morning. Patient reports that she was getting up and getting her breakfast ready. She states that she developed episode of chest pain that radiated up towards her neck and her head. She reports symptoms lasted for approximately 10 minutes. Her family called EMS and brought her here for arrival. She has past medical history of pancreatic cancer. She is currently on hospice as of recently. Patient states that she also suffers from acid reflux. She reports that her chest pain and discomfort has been different today than her previous acid reflux-like pains. Patient states that she has had a cardiac cath in August 2017 which was clear. (Kaylin Quinonez) - Related Data Home Medications Medication Instructions Recorded Confirmed Docusate [Colace] 100 mg PO TID 05/29/15 07/03/18 Ergocalciferol [Vitamin D2 50,000 unit PO SABA 05/29/15 07/03/18 (DRISDOL)] Isosorbide Mononitrate ER [Imdur] 30 mg PO BID 05/29/15 07/03/18 Naloxegol Oxalate [Movantik] 25 mg PO Q48H PRN 05/29/15 07/03/18 Aspirin EC [Ecotrin Low Dose] 81 mg PO DAILY 07/24/17 07/03/18 Halobetasol Propionate 1 applic TOPICAL BID PRN 07/24/17 07/03/18 Lidocaine 5% Patch [Lidoderm 5% 1 patch TOPICAL DAILY PRN 07/24/17 07/03/18 Patch] Pantoprazole [Protonix] 40 mg PO BID 07/24/17 07/03/18 diphenhydrAMINE [Benadryl] 50 mg PO HS PRN 07/24/17 07/03/18 Metoprolol Tartrate 12.5 mg PO QAM 08/16/17 07/03/18 Vit C/E/Zn/Coppr/Lutein/Zeaxan 1 cap PO DAILY 08/16/17 07/03/18 [Preservision Areds 2 Softgel] Citalopram Hydrobromide [CeleXA] 20 mg PO HS 01/07/18 07/03/18 Clobetasol Propionate [Temovate 1 applic TOPICAL DAILY 01/07/18 07/03/18 0.05% Cream] Nystatin 1 applic TOPICAL DAILY PRN 01/07/18 07/03/18 Polyethylene Glycol 3350 [Miralax] 17 gm PO DAILY PRN 01/07/18 07/03/18 Acetaminophen Tab [Tylenol] 650 mg PO Q4H PRN 07/03/18 07/03/18 Furosemide [Lasix] 20 mg PO DAILY PRN 07/03/18 07/03/18 HYDROcodone/APAP 5-325MG [[place] 1 tab PO Q6HR PRN 07/03/18 07/03/18 5-325] Inahler (Unknown) 1 puff INHALATION RT-BID PRN 07/03/18 07/03/18 Oxybutynin Chloride [Ditropan XL] 5 mg PO HS 07/03/18 07/03/18 Sweet Oil 2 - 3 drops BOTH EARS BID 07/03/18 07/03/18 predniSONE 5 mg PO DAILY 07/03/18 07/03/18 Previous Rx's Medication Instructions Recorded Nitroglycerin Sl Tabs [Nitrostat] 0.4 mg SUBLINGUAL Q5M PRN #1 bottle 07/26/17 Allergies Allergy/AdvReac Type Severity Reaction Status Date / Time bacitracin Allergy Unknown Verified 07/03/18 10:58 [From Neosporin ([id number])] bacitracin zinc Allergy Unknown Verified 07/03/18 10:58 [From Neosporin ([id number])] fenofibrate Allergy Rash/Hives Verified 07/03/18 11:58 fenofibrate nanocrystallized Allergy Rash/Hives Verified 07/03/18 11:58 [From Tricor] fenofibrate,micronized Allergy Rash/Hives Verified 07/03/18 11:58 [From Tricor] hydromorphone HCl Allergy Unknown Verified 07/03/18 10:58 [From Dilaudid] latex Allergy swelling Verified 07/03/18 11:58 of lips and mouth neomycin sulfate Allergy Unknown Verified 07/03/18 11:58 [From Neosporin ([id number])] Penicillins Allergy Rash/Hives Verified 07/03/18 11:58 pentazocine lactate Allergy Rash/Hives Verified 07/03/18 11:58 [From Talwin] polymyxin B Allergy Unknown Verified 07/03/18 10:58 [From Neosporin ([id number])] shellfish derived Allergy Rash/Hives Verified 07/03/18 11:58 simvastatin Allergy Rash/Hives Verified 07/03/18 11:58 sucralfate Allergy Swelling Verified 07/03/18 11:58 azithromycin [From Zithromax] AdvReac Nausea & Verified 07/03/18 11:58 Vomiting & Diarrhea ciprofloxacin [From Cipro] AdvReac Itching Verified 07/03/18 11:58 ciprofloxacin HCl AdvReac Itching Verified 07/03/18 11:58 [From Cipro] codeine AdvReac Itching Verified 07/03/18 11:58 meperidine [From Demerol] AdvReac Nausea & Verified 07/03/18 11:58 Vomiting naproxen [From Naprosyn] AdvReac Nausea Verified 07/03/18 11:58 tramadol [From Ultram] AdvReac Nausea & Verified 07/03/18 11:58 Vomiting Review of Systems ROS Other: All systems not noted in ROS Statement are negative. <Kaylin Quinonez - Last Filed: 07/06/18 11:41> ROS Other: All systems not noted in ROS Statement are negative. <Scott Strickland - Last Filed: 07/06/18 17:25> ROS Statement: Those systems with pertinent positive or pertinent negative responses have been documented in the HPI. Past Medical History Past Medical History: Cancer, Deep Vein Thrombosis (DVT), GERD/Reflux, Myocardial Infarction ([place]), Osteoarthritis (OA) Additional Past Medical History / Comment(s): see Dr Guerrero H&P, gets SOB, DVT left leg 2016, hiatal hernia, hx colon cancer, hx skin cancer, degeneration of spine, Last Myocardial Infarction Date:: 2008 History of Any Multi-Drug Resistant Organisms: None Reported Past Surgical History: Bladder Surgery, Bowel Resection, Section, Cholecystectomy, Heart Catheterization, Hernia Repair, Hysterectomy, Joint Replacement, Orthopedic Surgery Additional Past Surgical History / Comment(s): arthur bunionectomy and hammer toe, arthur knee replacement, rectal and bladder repair, arthur carpal tunnel, arthur cataracts, angioplasty, left hip replacement, Past Anesthesia/Blood Transfusion Reactions: No Reported Reaction Additional Past Anesthesia/Blood Transfusion Reaction / Comment(s): BLOOD TRANSFUSION-NO REACTION Date of Last Stent Placement:: 2006 Past Psychological History: No Psychological Hx Reported Smoking Status: Never smoker Past Alcohol Use History: None Reported Past Drug Use History: None Reported - Past Family History Mother Family Medical History: Cancer Additional Family Medical History / Comment(s): PANCREATIC CANCER Father Family Medical History: Myocardial Infarction ([place]) <Kaylin Quinonez - Last Filed: 07/06/18 11:41> General Exam Limitations: no limitations General appearance: alert, in no apparent distress Head exam: Present: atraumatic, normocephalic, normal inspection Eye exam: Present: normal appearance, PERRL, EOMI. Absent: scleral icterus, conjunctival injection, periorbital swelling ENT exam: Present: normal exam, mucous membranes moist Neck exam: Present: normal inspection. Absent: tenderness, meningismus, lymphadenopathy Respiratory exam: Present: normal lung sounds bilaterally. Absent: respiratory distress, wheezes, rales, rhonchi, stridor Cardiovascular Exam: Present: regular rate, normal rhythm, normal heart sounds. Absent: systolic murmur, diastolic murmur, rubs, gallop, clicks GI/Abdominal exam: Present: soft, normal bowel sounds. Absent: distended, tenderness, guarding, rebound, rigid Extremities exam: Present: normal inspection, full ROM, normal capillary refill. Absent: tenderness, pedal edema, joint swelling, calf tenderness Back exam: Present: normal inspection Neurological exam: Present: alert, oriented X3, CN II-XII intact Psychiatric exam: Present: normal affect, normal mood Skin exam: Present: warm, dry, intact, normal color. Absent: rash <Kaylin Quinonez - Last Filed: 07/06/18 11:41> <Scott Strickland - Last Filed: 07/06/18 17:25> - General Exam Comments Initial Comments: This is an 87 year old female. (Kaylin Quinonez) Vital Signs 07/03/18 07/03/18 07/03/18 10:45 10:50 11:00 Temperature 98.2 F Pulse Rate 57 L 56 L Respiratory 18 14 Rate Blood Pressure 150/69 150/69 O2 Sat by Pulse 98 98 98 Oximetry 07/03/18 07/03/18 07/03/18 11:30 12:00 12:30 Temperature Pulse Rate 55 L 60 Respiratory 16 14 Rate Blood Pressure 146/78 142/63 O2 Sat by Pulse 98 98 Oximetry 07/03/18 07/03/18 07/03/18 13:00 13:30 14:00 Temperature 98 F Pulse Rate 58 L 59 L 58 L Respiratory 15 16 18 Rate Blood Pressure 143/82 136/59 116/72 O2 Sat by Pulse 96 98 98 Oximetry EKG Findings - EKG Comments: EKG Findings:: EKG shows sinus bradycardia, right bundle-branch block. Abnormal EKG noted. Ventricular rate 70 beats were minute. UT interval is 120 ms. QRS ration 1:30 milliseconds. QT QTc is 472/455 ms. <Kaylin Quinonez - Last Filed: 07/06/18 11:41> Medical Decision Making - Lab Data Result diagrams: 07/03/18 11:05 07/03/18 11:05 - Radiology Data Radiology results: report reviewed <Kaylin Quinonez - Last Filed: 07/06/18 11:41> - Lab Data Result diagrams: 07/03/18 11:05 07/03/18 11:05 <Scott Strickland - Last Filed: 07/06/18 17:25> - Medical Decision Making This is an 87 year old female, whom presents today with chest pain that was sudden and subsided. She also complains of GERd, but states tthat today's chest pain is different than GERd.She is on hospice for pancreatitic cancer. PAtient at this time has normal EKG, normal troponin, and CXR is unremarkable. Patient case discussed with Dr. Strickland. Last cardaiac cath was clear in july 2017. Patient elects to go home at this time, and does not want to be admitted for repeat troponins in regards to being on hospice. Discussed return parameters. (Kaylin Quinonez) I did have a long discussion regarding admission versus discharge. Patient had chest pain which was relieved by nitroglycerin, no chest pain while in the emergency department. Patient is accompanied by her daughter, through arrested decided that she will be discharged home with no further evaluation at this time as she is asymptomatic, and currently on hospice care. (Scott Strickland ) - Lab Data Lab Results 07/03/18 07/03/18 07/03/18 Range/Units 11:05 11:05 11:05 WBC 8.7 (3.8-10.6) k/uL RBC 4.43 (3.80-5.40) m/uL Hgb 13.7 (11.4-16.0) gm/dL Hct 42.5 (34.0-46.0) % MCV 95.8 (80.0-100.0) fL MCH 31.0 (25.0-35.0) pg MCHC 32.3 (31.0-37.0) g/dL RDW 13.1 (11.5-15.5) % Plt Count 229 (150-450) k/uL Neutrophils % 52 % Lymphocytes % 35 % Monocytes % 8 % Eosinophils % 2 % Basophils % 0 % Neutrophils # 4.5 (1.3-7.7) k/uL Lymphocytes # 3.0 (1.0-4.8) k/uL Monocytes # 0.7 (0-1.0) k/uL Eosinophils # 0.1 (0-0.7) k/uL Basophils # 0.0 (0-0.2) k/uL PT (9.0-12.0) sec INR (<1.2) APTT (22.0-30.0) sec Sodium 137 (137-145) mmol/L Potassium 4.4 (3.5-5.1) mmol/L Chloride 104 (98-107) mmol/L Carbon Dioxide 28 (22-30) mmol/L Anion Gap 5 mmol/L BUN 21 H (7-17) mg/dL Creatinine 0.57 (0.52-1.04) mg/dL Est GFR (CKD-EPI)AfAm >90 (>60 ml/min/1.73 sqM) Est GFR (CKD-EPI)NonAf 83 (>60 ml/min/1.73 sqM) Glucose 80 (74-99) mg/dL Calcium 9.4 (8.4-10.2) mg/dL Magnesium 2.1 (1.6-2.3) mg/dL Total Bilirubin 0.7 (0.2-1.3) mg/dL AST 20 (14-36) U/L ALT 28 (9-52) U/L Alkaline Phosphatase 56 (38-126) U/L Total Creatine Kinase 29 L (30-135) U/L CK-MB (CK-2) 0.3 (0.0-2.4) ng/mL CK-MB (CK-2) Rel Index 1.0 Troponin I <0.012 (0.000-0.034) ng/mL NT-Pro-B Natriuret Pep pg/mL Total Protein 6.8 (6.3-8.2) g/dL Albumin 3.8 (3.5-5.0) g/dL Amylase 35 (30-110) U/L Lipase 23 (23-300) U/L Urine Color Urine Appearance (Clear) Urine pH (5.0-8.0) Ur Specific [place] (1.001-1.035) Urine Protein (Negative) Urine Glucose (UA) (Negative) Urine Ketones (Negative) Urine Blood (Negative) Urine Nitrite (Negative) Urine Bilirubin (Negative) Urine Urobilinogen (<2.0) mg/dL Ur Leukocyte Esterase (Negative) Urine RBC (0-5) /hpf Urine WBC (0-5) /hpf Ur Squamous Epith Cells (0-4) /hpf Urine Bacteria (None) /hpf 07/03/18 07/03/18 07/03/18 Range/Units 11:05 11:05 11:50 WBC (3.8-10.6) k/uL RBC (3.80-5.40) m/uL Hgb (11.4-16.0) gm/dL Hct (34.0-46.0) % MCV (80.0-100.0) fL MCH (25.0-35.0) pg MCHC (31.0-37.0) g/dL RDW (11.5-15.5) % Plt Count (150-450) k/uL Neutrophils % % Lymphocytes % % Monocytes % % Eosinophils % % Basophils % % Neutrophils # (1.3-7.7) k/uL Lymphocytes # (1.0-4.8) k/uL Monocytes # (0-1.0) k/uL Eosinophils # (0-0.7) k/uL Basophils # (0-0.2) k/uL PT 9.9 (9.0-12.0) sec INR 0.9 (<1.2) APTT 21.7 L (22.0-30.0) sec Sodium (137-145) mmol/L Potassium (3.5-5.1) mmol/L Chloride (98-107) mmol/L Carbon Dioxide (22-30) mmol/L Anion Gap mmol/L BUN (7-17) mg/dL Creatinine (0.52-1.04) mg/dL Est GFR (CKD-EPI)AfAm (>60 ml/min/1.73 sqM) Est GFR (CKD-EPI)NonAf (>60 ml/min/1.73 sqM) Glucose (74-99) mg/dL Calcium (8.4-10.2) mg/dL Magnesium (1.6-2.3) mg/dL Total Bilirubin (0.2-1.3) mg/dL AST (14-36) U/L ALT (9-52) U/L Alkaline Phosphatase (38-126) U/L Total Creatine Kinase (30-135) U/L CK-MB (CK-2) (0.0-2.4) ng/mL CK-MB (CK-2) Rel Index Troponin I (0.000-0.034) ng/mL NT-Pro-B Natriuret Pep 183 pg/mL Total Protein (6.3-8.2) g/dL Albumin (3.5-5.0) g/dL Amylase (30-110) U/L Lipase (23-300) U/L Urine Color Colorless Urine Appearance Clear (Clear) Urine pH 7.5 (5.0-8.0) Ur Specific [place] 1.006 (1.001-1.035) Urine Protein Negative (Negative) Urine Glucose (UA) Negative (Negative) Urine Ketones Negative (Negative) Urine Blood Trace H (Negative) Urine Nitrite Negative (Negative) Urine Bilirubin Negative (Negative) Urine Urobilinogen <2.0 (<2.0) mg/dL Ur Leukocyte Esterase Negative (Negative) Urine RBC 4 (0-5) /hpf Urine WBC 1 (0-5) /hpf Ur Squamous Epith Cells <1 (0-4) /hpf Urine Bacteria Rare H (None) /hpf - Radiology Data Normal CXR. (Kaylin Quinonez) Disposition Is patient prescribed a controlled substance at d/c from ED?: No Time of Disposition: 13:42 <Kaylin Quinonez - Last Filed: 07/06/18 11:41> <Scott Strickland - Last Filed: 07/06/18 17:25> Clinical Impression: Chest pain Disposition: HOME SELF-CARE Condition: Good Instructions (If sedation given, give patient instructions): Chest Pain (ED) Additional Instructions: Follow-up with primary care provider and cardiology. Return to emergency department if any alarming signs or symptoms occur. Referrals: Shai Figueroa MD [Primary Care Provider] - 1-2 days
[2018-07-03 11:54] LABS: Basophils % (A) 0 %; Eosinophils # (A) 0.1 k/uL (0-0.7); Eosinophils % (A) 2 %; HCT 42.5 % (34.0-46.0); HGB 13.7 gm/dL (11.4-16.0); Lymphocytes % (A) 35 %; MCHC 32.3 g/dL (31.0-37.0); MCV 95.8 fL (80.0-100.0); Mean Platelet Volume 6.6; Monocytes # (A) 0.7 k/uL (0-1.0); Monocytes % (A) 8 %; Neutrophils # (A) 4.5 k/uL (1.3-7.7); Neutrophils % (A) 52 %; Platelet Count 229 k/uL (150-450); RBC 4.43 m/uL (3.80-5.40); RDW 13.1 % (11.5-15.5); WBC 8.7 k/uL (3.8-10.6)
[2018-07-03 12:07] LABS: ALT 28 U/L (9-52); AST 20 U/L (14-36); Albumin 3.8 g/dL (3.5-5.0); Alkaline Phosphatase 56 U/L (38-126); Amylase 35 U/L (30-110); Anion Gap 5 mmol/L; Blood Urea Nitrogen 21 mg/dL (7-17); Calcium 9.4 mg/dL (8.4-10.2); Carbon Dioxide 28 mmol/L (22-30); Chloride 104 mmol/L (98-107); Glucose 80 mg/dL (74-99); Lipase 23 U/L (23-300); Magnesium 2.1 mg/dL (1.6-2.3); Potassium 4.4 mmol/L (3.5-5.1); Sodium 137 mmol/L (137-145); Total Bilirubin 0.7 mg/dL (0.2-1.3); Total Protein 6.8 g/dL (6.3-8.2)
--- NOTE | 2018-07-03 12:09 | XR ---
EXAMINATION TYPE: XR chest 2V DATE OF EXAM: 07/03/2018 COMPARISON: 07/24/2017 INDICATION: Chest pain TECHNIQUE: Frontal and lateral views of the chest are obtained. FINDINGS: The heart size is normal. Vascular calcifications at the aortic arch. The pulmonary vasculature is normal. The lungs are clear. There is chronic elevation of the right diaphragm. IMPRESSION: 1. No acute pulmonary process.
[2018-07-03 12:20] LABS: INR 0.9 (<1.2); Prothrombin Time 9.9 sec (9.0-12.0)
[2018-07-03 12:25] LABS: Creatine Kinase 29 U/L (30-135)
[2018-07-03 12:28] LABS: Partial Thromboplastin Time 21.7 sec (22.0-30.0)
[2018-07-03 12:37] LABS: Appearance,Urine Clear (Clear); Bacteria,Urine Rare /hpf; Bilirubin,Urine Negative (Negative); Blood,Urine Trace (Negative); Color,Urine Colorless; Glucose,Urine (UA) Negative (Negative); Ketones,Urine Negative (Negative); Leukocyte Esterase,Urine Negative (Negative); Nitrite,Urine Negative (Negative); PH, Urine 7.5 (5.0-8.0); Protein,Urine Negative (Negative); RBC,Urine 4 /hpf (0-5); Specific Gravity,Urine 1.006 (1.001-1.035); Squamous Epithelial Cell,Urine <1 /hpf (0-4); Urobilinogen,Urine <2.0 mg/dL (<2.0); WBC,Urine 1 /hpf (0-5)
[2018-07-03 12:39] LABS: Creatine Kinase MB 0.3 ng/mL (0.0-2.4); Troponin I <0.012 ng/mL (0.000-0.034)
[2018-07-03 14:19] VITALS: BP 116/72; PULSE 58; RESP 18; TEMP 98
== END 2018-07-03 14:19 | disposition home or self-care (01) ==
LOC: EC 10:44
DX: R07.89 Other chest pain (principal); K21.9 Gastro-esophageal reflux disease without esophagitis; C25.9 Malignant neoplasm of pancreas, unspecified; I25.2 Old myocardial infarction; M19.90 Unspecified osteoarthritis, unspecified site; Z79.82 Long term (current) use of aspirin; Z79.899 Other long term (current) drug therapy; Z79.51 Long term (current) use of inhaled steroids; Z88.1 Allergy status to other antibiotic agents; Z88.8 Allergy status to other drugs, medicaments and biological substances; Z88.5 Allergy status to narcotic agent; Z91.040 Latex allergy status; Z88.0 Allergy status to penicillin; Z91.013 Allergy to seafood; Z88.6 Allergy status to analgesic agent; Z85.038 Personal history of other malignant neoplasm of large intestine; Z85.828 Personal history of other malignant neoplasm of skin; Z86.718 Personal history of other venous thrombosis and embolism; Z96.642 Presence of left artificial hip joint; Z96.653 Presence of artificial knee joint, bilateral; Z95.5 Presence of coronary angioplasty implant and graft
CPT/HCPCS: 36415; 71046; 80053; 81001; 82150; 82550; 82553; 83690; 83735; 83880; 84484; 85025; 85610; 85730; 93005; 96360; 99285